=== PATIENT | female | born 1985 | race African-American/Black ===

== ENCOUNTER 2017-10-24 18:52 | Inpatient (IN) | payer OTHER ==
--- OUTSIDE RECORDS SUMMARY | ~2017-10-24 | XMS ---
Demographics + + + | Address | [address] | | | [address] | | | [place] [address] | + + + | Preferred Language | Unknown | + + + | Marital Status | Unknown | + + + | Oriental Orthodox Affiliation | Unknown | + + + | Race | Unknown | + + + | Ethnic Group | Unknown | + + + Author + + + | Author | [facility] | + + + | Organization | [facility] | + + + | Address | [address] | | | [place] [address] | + + + | Phone | | + + + Care Team Providers + + + + | Care Furniture Mover Driver Name | Role | Phone | + + + + Unavailable | Unavailable | + + + + PROBLEMS +---------+ + + +--------+ + + | Type | Condition | ICD9-CM | IRA73-CB | Onset | Condition | SNOMED | | | | Code | Code | Dates | Status | Code | +---------+ + + +--------+ + + | Problem | Encounter | Z34.90 | | | Active | [id number] | | | for | | | | | | | | supervisio | | | | | | | | n of | | | | | | | | normal | | | | | | | | | | | | | | +---------+ + + +--------+ + + | Problem | Elevated | | R03.0 | | Active | [id number] | | | blood | | | | | | | | pressure | | | | | | | | (not | | | | | | | | hypertensi | | | | | | | | on) | | | | | | +---------+ + + +--------+ + + ALLERGIES Unknown Allergies SOCIAL HISTORY No smoking Hx information available PLAN OF CARE VITAL SIGNS MEDICATIONS Unknown Medications RESULTS No Results PROCEDURES No Known procedures IMMUNIZATIONS No Known Immunizations"
--- OUTSIDE RECORDS SUMMARY | ~2017-10-24 | XMS | Clinical Summary ---
Demographics + + + | Address | [address] | | | [place] [address] | + + + | Home Phone | | + + + | Preferred Language | Unknown | + + + | Marital Status | Single | + + + | Spiritism Affiliation | NON | + + + | Race | Black or | + + + | Ethnic Group | Not or | + + + Author + + + | Organization | Unknown | + + + | Address | Unknown | + + + | Phone | Unavailable | + + + Support +------+ + + + +-------+ | Name | Relationship | Address | Phone | +------+ + + + +-------+ ECON | [address] [facility] | | [place] | [address] | +------+ + + + +-------+ Care Team Providers + +------+ + | Care Network Systems Analyst Name | Role | Phone | + +------+ + PP | Unavailable | + +------+ + Source Comments TEE is fully live on both [facility] and [facility] Allergies Not on File Current Medications Not on file Active Problems Not on file Social History + +-------+ +--------+------+ | Tobacco Use | Types | Packs/Day | Years | Date | | | | | Used | | + +-------+ +--------+------+ | Never Assessed | | | | | + +-------+ +--------+------+ + + + | Sex Assigned at | Date Recorded | | | | + + + | Not on file | | + + + Plan of Treatment + + + + + | Health Maintenance | Due Date | Last Done | Comments | + + + + + | INFLUENZA VACCINE | | | | | (FLU SHOT) | 7 | | | + + + + + Results Not on filefrom Last 3 Months"
--- OUTSIDE RECORDS SUMMARY | ~2017-10-24 | XMS ---
Demographics + + + | Address | [address] | | | [address] | | | [place] [address] | + + + | Preferred Language | Unknown | + + + | Marital Status | Unknown | + + + | Adventist Affiliation | Unknown | + + + | Race | Unknown | + + + | Ethnic Group | Unknown | + + + Author + + + | Author | [facility] | + + + | Organization | [facility] | + + + | Address | [address] | | | [place] [address] | + + + | Phone | | + + + Care Team Providers + + + + | Care Sales Expert Name | Role | Phone | + + + + Unavailable | Unavailable | + + + + PROBLEMS +---------+ + + +--------+ + + | Type | Condition | ICD9-CM | ESV17-IO | Onset | Condition | SNOMED | | | | Code | Code | Dates | Status | Code | +---------+ + + +--------+ + + | Problem | Encounter | Z34.90 | | | Active | [id number] | | | for | | | | | | | | supervisio | | | | | | | | n of | | | | | | | | normal | | | | | | | | | | | | | | +---------+ + + +--------+ + + | Problem | Elevated | | R03.0 | | Active | [id number] | | | blood | | | [...]
--- OUTSIDE RECORDS SUMMARY | ~2017-10-24 | XMS ---
Demographics + + + | Address | [address] | | | [address] | | | [place] [address] | + + + | Preferred Language | Unknown | + + + | Marital Status | Unknown | + + + | Muslim Affiliation | Unknown | + + + | Race | Unknown | + + + | Ethnic Group | Unknown | + + + Author + + + | Author | [facility] | + + + | Organization | [facility] | + + + | Address | [address] | | | [place] [address] | + + + | Phone | | + + + Care Team Providers + + + + | Care Detonator Maker Name | Role | Phone | + + + + Unavailable | Unavailable | + + + + PROBLEMS +---------+ + + +--------+ + + | Type | Condition | ICD9-CM | ZFB83-GM | Onset | Condition | SNOMED | | | | Code | Code | Dates | Status | Code | +---------+ + + +--------+ + + | Problem | Encounter | Z34.90 | | | Active | [id number] | | | for | | | | | | | | supervisio | | | | | | | | n of | | | | | | | | normal | | | | | | | | | | | | | | +---------+ + + +--------+ + + | Problem | Elevated | | R03.0 | | Active | [id number] | | | blood | | | | | | | | pressure | | | | | | | | (not | | | | | | | | hypertensi | | | | | | | | on) | | | | | | +---------+ + + +--------+ + + ALLERGIES No Information SOCIAL HISTORY Never Assessed PLAN OF CARE VITAL SIGNS MEDICATIONS Unknown Medications RESULTS No Results PROCEDURES No Known procedures IMMUNIZATIONS No Known Immunizations MEDICAL (GENERAL) HISTORY + + +------+ | Type | Description | Date | + + +------+ | Medical History | headache | | + + +------+ | Surgical History | T & A | 1995 | + + +------+ | Surgical History | sinus surgery x 6 | | + + +------+ | Surgical History | right hip replacement x 4 | | | | (age 1, 6, 11, 16) | | + + +------+"
--- OUTSIDE RECORDS SUMMARY | ~2017-10-24 | XMS ---
Demographics + + + | Address | [address] | | | [address] | | | [place] [address] | + + + | Preferred Language | Unknown | + + + | Marital Status | Unknown | + + + | Restorationism Affiliation | Unknown | + + + | Race | Unknown | + + + | Ethnic Group | Unknown | + + + Author + + + | Author | [facility] | + + + | Organization | [facility] | + + + | Address | [address] | | | [place] [address] | + + + | Phone | | + + + Care Team Providers + + + + | Care Performance Improvement Director Name | Role | Phone | + + + + Unavailable | Unavailable | + + + + PROBLEMS +---------+ + + +--------+ + + | Type | Condition | ICD9-CM | RZP17-CC | Onset | Condition | SNOMED | | | | Code | Code | Dates | Status | Code | +---------+ + + +--------+ + + | Problem | Encounter | Z34.90 | | | Active | [id number] | | | for | | | | | | | | supervisio | | | | | | | | n of | | | | | | | | normal | | | | | | | | | | | | | | +---------+ + + +--------+ + + | Problem | Elevated | | R03.0 | | Active | [id number] | | | blood | | | [...]
[2017-10-25] MEDS ORDERED: VITAFOL-OB+DHA1 EACH PO (01:18)
--- NOTE | 2017-10-25 09:59 | PR ---
[facility] [address] [facility] [place], [place] [address] Signed Progress Notes IP Datetime Report Generated by CPN: 10/25/2017 09:59 PROGRESS NOTES: [id number] Impression: Slow Progression of Labor Plan: Continue present management VITAL SIGNS: [id number] Vital Signs: Reviewed VS Notable Details: No severe range BP's EXAM: [id number] Dilatation: 1.5 Effacement: 75 Station: -3 Uterine Contractions: every 1-3 minutes MEMBRANES: [id number] Pooling: Negative Membrane Status: Intact Comments: Toleraing contracitons well, after 3rd Cytotec placed. Received 2nd Ancef dose. Continue induction. AROM with internal monitors when able. Fetus A: [id number] FHR Baseline: 130 Variability: Moderate 6-25bpm Accelerations: 15X15 Decelerations: None FHR Category: Category I Presentation: Vertex Comments on Fetus A: No evidence of metabolic acidosis Fetus B: [id number] Signing Physician: Mathew Otoole MD CC: *Electronically Signed* 10/25/17 0959 MATHEW OTOOLE MD PATIENT NAME: ANDREWFRANCESCOKirk CARNEY PROGRESS NOTE DATE OF : 81 PHYSICIAN: MATHEW OTOOLE MD RPT #: [id number] REPORT IS CONFIDENTIAL AND NOT TO BE RELEASED WITHOUT AUTHORIZATION
--- NOTE | 2017-10-25 13:31 | PR ---
[facility] [address] [facility] [place], [place] [address] Signed Progress Notes IP Datetime Report Generated by CPN: 10/25/2017 13:31 PROGRESS NOTES: [id number] Impression: Normal progression of labor Procedures: Intrauterine Pressure Catheter; Scalp Electrode Plan: Continue present management VITAL SIGNS: [id number] Vital Signs: Reviewed VS Notable Details: No severe range BP's EXAM: [id number] Dilatation: 3.5 Effacement: 80 Station: -3 Uterine Contractions: every 2-3 minutes MEMBRANES: [id number] Pooling: Negative Membrane Status: Ruptured Amniotic Fluid Color: Clear Comments: Tolerating contracitons with IV pain meds. Turned to left side, fetus tolerating labor well at this time. Fetus A: [id number] FHR Baseline: 130 Variability: Moderate 6-25bpm Accelerations: 15X15 Decelerations: None FHR Category: Category I Presentation: Vertex Comments on Fetus A: several early decels Fetus B: [id number] Signing Physician: Juan Otoole MD CC: *Electronically Signed* 10/25/17 1331 JUAN OTOOLE MD PATIENT NAME: ALINA MORALES PROGRESS NOTE DATE OF : 81 PHYSICIAN: JUAN OTOOLE MD RPT #: [id number] REPORT IS CONFIDENTIAL AND NOT TO BE RELEASED WITHOUT AUTHORIZATION
--- NOTE | 2017-10-26 12:50 | OR ---
[facility] [address] [place], [place] [address] Signed DATE OF OPERATION: 10/25/2017 SURGEON: Juan Cottrell MD PREOPERATIVE DIAGNOSES: 1. Term labor, failure to progress. 2. Non-reassuring heart rate tracing. 3. Chronic hypertension. 4. Obesity. 5. Undiagnosed possible bleeding disorder. POSTOPERATIVE DIAGNOSES: 1. Term labor, failure to progress. 2. Non-reassuring heart rate tracing. 3. Chronic hypertension. 4. Obesity. 5. Undiagnosed possible bleeding disorder. PROCEDURE PERFORMED: Primary low transverse segment section, delivery of live female . WAREHOUSE PACKAGING SUPERVISOR: Dr. Rubin. ANESTHESIA: General. ESTIMATED BLOOD LOSS: 1500 mL. COMPLICATIONS: None. DRAINS: Vera to bladder. FINDINGS: Live female , Apgars 8 and 9. Weight 8 pounds 5 ounces in ROP presentation. Normal uterus. Normal tubes and ovaries bilateral. Electronically Signed By: JUAN COTTRELL MD 10/26/17 8060 PATIENT NAME: ALINA MORALES OPERATIVE REPORT DATE OF : 81 PHYSICIAN: JUAN COTTRELL MD REPORT #: [id number] REPORT IS CONFIDENTIAL AND NOT TO BE RELEASED WITHOUT AUTHORIZATION [facility] [address] [place] [address] Signed DESCRIPTION OF PROCEDURE: The patient was brought in to the operating room, placed in supine position. She was prepped and draped in the usual sterile fashion. Vera catheter was placed in the bladder. Because of the undiagnosed possible bleeding disorder, it was decided the safest method would be under general anesthesia, so everything was prepared before starting anesthesia. The patient is obese and so sterile straps were attached to the abdomen to hold her abdomen up during the surgery. The patient received tranexamic acid approximately 10-15 minutes before incision to help with the bleeding. General anesthesia was then obtained and immediately a low-transverse skin incision was made with a scalpel. Subcutaneous tissue was dissected with a scalpel and the fascia nicked with a scalpel. The fascia was opened in transverse fashion using curved scissors. The underlying abdominal musculature was bluntly and sharply from the fascia above and below the incision. The abdominal musculature was bluntly along the midline and peritoneum opened with finger dissection. The George self-retaining retractor was inserted into the incision, lower uterine segment identified, the midline was carefully nicked with scalpel and the incision extended in transverse fashion using finger dissection. The was noted to be in the vertex ROP presentation. The infant's head was still high, not in the pelvis, so was easily delivered from the incision. The mouth and nose were suctioned with bulb syringe while the cord was doubly clamped and cut. The was passed off table in good condition to the awaiting recreation facility attendant, cord gases were obtained and the placenta removed and the uterine cavity explored with lap pad to remove any retained membrane. Angled stitch of 0 Monocryl was placed in one incision and running locking stitch of 0 Monocryl starting at the other end used to close the incision. On the left side, the incision extended down and through some of the uterine vessels which did create more bleeding, this was controlled with T clamps prior to sewing the incision close. A second running stitch of 0 Monocryl was used to imbricate the first layer. The uterine incision was examined, there was good hemostasis for some oozing in the left angle within the broad ligament, finger was placed behind the broad ligament and the uterine vessel on the left side sutured with jfbtrt-tv-[id number] stitches of 0 Monocryl. Good hemostasis was obtained. Another mfgnhd-hm-ndhha stitch of 0 Monocryl was used to bring the torn peritoneum of the broad ligament back hoe operator together. The entire pelvis was irrigated, suctioned, and examined, any bleeding spots were cauterized with the Bovie. Good hemostasis was noted at this time. Evicel was placed in the raw area of the broad ligament to further help with hemostasis and then the George retractor was removed. Sheet of ACell placed over the lower uterine segment to help with healing. The anterior wall peritoneum was closed using running stitch of 2-0 Vicryl suture. The abdominal musculature was irrigated, suctioned, and examined. Several bleeding spots from torn muscle were identified and these were closed with akitoj-qb-vjtfn stitches of 0 Vicryl suture. Superficial bleeding spots on the underside of the fascia and on the superficial Electronically Signed By: JUAN COTTRELL MD 10/26/17 7170 PATIENT NAME: ALINA MORALES OPERATIVE REPORT DATE OF : 81 PHYSICIAN: JUAN COTTRELL MD REPORT #: [id number] REPORT IS CONFIDENTIAL AND NOT TO BE RELEASED WITHOUT AUTHORIZATION [address] [address] Signed muscle were cauterized with the Bovie. Good hemostasis was obtained. The abdominal musculature was reapproximated along the midline using interrupted stitches of 0 Vicryl suture. The powdered ACell was sprinkled on the abdominal musculature after irrigating and suctioning making sure of good hemostasis. The fascia was then closed using 2 running stitches of 0 Vicryl suture meeting in the midline. Subcutaneous tissue was irrigated, suctioned, examined, any bleeding spots cauterized with the Bovie. Subcutaneous tissue was sprinkled with powdered ACell, and then closed in two layers with the first layer with interrupted 3-0 Vicryl suture and the second layer with a running stitch of 0 Vicryl suture. The skin was reapproximated using skin clips. The patient tolerated the procedure well, went to recovery room in good condition. The sponge, needle, and instrument count were correct at the end of procedure. The Vera was in place, had good clear urine. The cord gases were sent to the lab. Sponge, needle, and instrument count correct at the end of the procedure. Juan Cottrell MD MJB/MODL /[id number] Electronically Signed By: JUAN COTTRELL MD 10/26/17 1250 PATIENT NAME: ALINA MORALES OPERATIVE REPORT DATE OF : 81 PHYSICIAN: JUAN COTTRELL MD REPORT #: [id number] REPORT IS CONFIDENTIAL AND NOT TO BE RELEASED WITHOUT AUTHORIZATION
== END 2017-10-28 14:10 | disposition home or self-care (01) | DRG 765 ==
LOC: EDSTATUS 10-25 00:17 → FBC 10-25 00:19 → FBCO 10-25 18:29 → FBC 10-28 14:10
PROVIDERS: ADMIT General Practice
PROC: 10D00Z1 Extraction of Products of Conception, Low, Open Approach (ICD-10-PCS; principal; 2017-10-25 17:00)
DX: O32.4XX0 Maternal care for high head at term, not applicable or unspecified (principal); O10.92 Unspecified pre-existing hypertension complicating childbirth; Z37.0 Single live birth; O76 Abnormality in fetal heart rate and rhythm complicating labor and delivery; O99.214 Obesity complicating childbirth; Z3A.39 39 weeks gestation of pregnancy
CPT/HCPCS: 01961; 36415; 80053; 82803; 85025; 85027; 85610; 85730; 86850; 86900; 86901; 86920; C1763; J0330; J0360; J0690; J1170; J2250; J2405; J2550; J2590; J2704; J3010; J3105; J7120

== ENCOUNTER 2020-11-23 17:54 | Emergency (ER) | payer OTHER ==
[~2020-11-23] VITALS: Ht 167.6 cm; Wt 205.5 kg
[~2020-11-23 17:54] MED LIST: VITAFOL-OB+DHA1 EACH PO
[2020-11-23] MEDS ORDERED: VENTOLIN HFA18 GM INH (18:17)
== END 2020-11-23 20:50 | disposition home or self-care (01) ==
LOC: ED 17:54
DX: U07.1 COVID-19 (principal); R00.0 Tachycardia, unspecified; I10 Essential (primary) hypertension; Z88.0 Allergy status to penicillin; Z88.1 Allergy status to other antibiotic agents
CPT/HCPCS: 80053; 85025; 96374; 99284-25; C9803; J1885; J7030; U0003

== ENCOUNTER 2021-06-30 19:45 | Inpatient (IN) | payer OTHER ==
[~2021-06-30] VITALS: Ht 167.6 cm; Wt 166.1 kg
[~2021-06-30 19:45] MED LIST changes: +VENTOLIN HFA18 GM INH
--- NOTE | 2021-07-01 07:19 | OR ---
[facility] [address] [place], [place] [address] Signed DATE OF OPERATION: 07/01/2021 SURGEON: Yazan Diana MD PREOPERATIVE DIAGNOSES: 1. Diabetic ketoacidosis. 2. Sepsis. POSTOPERATIVE DIAGNOSES: 1. Diabetic ketoacidosis. 2. Sepsis. PROCEDURE: 1. Placement right femoral triple-lumen catheter. 2. Attempted placement left subclavian triple-lumen catheter. ESTIMATED BLOOD LOSS: Minimal. INDICATIONS: Nilo is a 36-year-old, obese female, who has been admitted to the ICU with diabetic ketoacidosis and sepsis. She has been undergoing hydration through peripheral IV access. She is in need of ongoing ICU care including pressor support. She also has pancreatitis. I was therefore asked to come urgently to the ICU to place a central venous catheter for this patient. She is unconscious and unable to respond. In fact, local anesthetic was then even needed. DESCRIPTION OF PROCEDURE: We initially approached Nilo's left subclavian access point. Her body mass index was quite high. She was very full in her chest and neck. We had prepped and draped the entire area sterilely and injected some local anesthetic and then passed our needle in. We barely got to her clavicle and we up the length of the needle. We tried twice to go underneath the clavicle without success. Consequently, we abandoned the subclavian approach. At that point, we did not have our ultrasound with this, and we decided we would place it in the femoral approach with the idea change out in a day or two with the help of the ultrasound if necessary. The right groin had been prepped and draped in the usual sterile fashion and again we used our bedside Doppler to find the femoral artery and vein. We marked that appropriately. We could palpate that as well. We again passed the needle almost up to the hub and we had not access her femoral vein. We had to go just a little deeper and dimple her skin and we finally accessed her Electronically Signed By: YAZAN DIANA MD 07/01/21 0719 PATIENT NAME: NILO MORALES OPERATIVE REPORT DATE OF : 81 REPORT #: [id number] PHYSICIAN: YAZAN DIANA MD PCP: NO PRIMARY CARE PHYSICIAN REPORT IS CONFIDENTIAL AND NOT TO BE RELEASED WITHOUT AUTHORIZATION [facility] [address] [place] [address] Signed femoral vein. We had return of nonpulsatile dark venous blood. The wire was able to feed without any resistance whatsoever. The was dilated without resistance and the dilator curved in the appropriate direction. The triple-lumen catheter was inserted up to the hub and all three ports were able to draw and flush quite readily. The catheter was held in place with interrupted silk sutures. Dry plastic occlusive dressing was applied per nursing staff. Nilo of course tolerated the procedure well. She is unconscious. Yazan Diana MD ALB/MODL /[id number] cc: Yazan Diana MD Copies: YAZAN DIANA MD ~ Electronically Signed By: YAZAN DIANA MD 07/01/21 0719 PATIENT NAME: NILO MORALES OPERATIVE REPORT DATE OF : 81 REPORT #: [id number] PHYSICIAN: YAZAN DIANA MD PCP: NO PRIMARY CARE PHYSICIAN REPORT IS CONFIDENTIAL AND NOT TO BE RELEASED WITHOUT AUTHORIZATION
--- NOTE | 2021-07-01 14:34 | EKG ---
[facility] [address] [facility] [place], [place] [address] Signed Normal sinus rhythm Right atrial enlargement ST \T\ T wave abnormality, consider lateral ischemia Prolonged QT Abnormal ECG No previous ECGs available Confirmed by KATHI IBRAHIM MD ([id number]) on 07/01/2021 2:34:30 PM Electronically Signed By: KATHI IBRAHIM MD 07/01/21 1434 PATIENT NAME: ALINA MORALES ROMMEL Electrocardiogram DATE OF : 81 PHYSICIAN: KATHI IBRAHIM MD REPORT #: [id number] REPORT IS CONFIDENTIAL AND NOT TO BE RELEASED WITHOUT AUTHORIZATION
[2021-07-07] MEDS ORDERED: PANTOPRAZOLE SO40 MG PO (12:39)
[2021-07-07] MEDS ORDERED: FREESTYLE LITE1 EAC1 TD (12:40)
[2021-07-07] MEDS ORDERED: SEMGLEE100 UNIT/1 SUB-Q (12:40)
[2021-07-07] MEDS ORDERED: FREESTYLE FREE1 EAC1 MISC (12:41)
[2021-07-07] MEDS ORDERED: INSULIN SYRING1 EA47 MISC (12:41)
[2021-07-07] MEDS ORDERED: METFORMIN HCL500 MG PO (12:43)
[2021-07-07] MEDS ORDERED: AMLODIPINE BESYL5 MG PO (12:48)
[2021-07-07] MEDS ORDERED: ONDANSETRON ODT4 MG SL (12:50)
== END 2021-07-07 15:20 | disposition home or self-care (01) | DRG 637 ==
LOC: ED 19:45 → CCU 22:51 → MS 22:51 → CCU 07-03 23:00 → MS 07-05 12:10
PROVIDERS: ADMIT Internal Medicine; ATTEND Internal Medicine
PROC: 05HY33Z Insertion of Infusion Device into Upper Vein, Percutaneous Approach (ICD-10-PCS; principal; 2021-07-02 13:45)
DX: E11.10 Type 2 diabetes mellitus with ketoacidosis without coma (principal); G93.41 Metabolic encephalopathy; K85.00 Idiopathic acute pancreatitis without necrosis or infection; N17.9 Acute kidney failure, unspecified; E87.1 Hypo-osmolality and hyponatremia; R65.10 Systemic inflammatory response syndrome (SIRS) of non-infectious origin without acute organ dysfunction; Z20.822 Contact with and (suspected) exposure to COVID-19; E86.1 Hypovolemia; E83.39 Other disorders of phosphorus metabolism; I10 Essential (primary) hypertension; F17.210 Nicotine dependence, cigarettes, uncomplicated; Z98.890 Other specified postprocedural states; Z96.641 Presence of right artificial hip joint; Z88.0 Allergy status to penicillin; Z88.1 Allergy status to other antibiotic agents; Z79.899 Other long term (current) drug therapy
CPT/HCPCS: 36569; 70450; 71045; 74176; 80048; 80053; 80061; 80069; 80500; 81001; 82010; 82553; 82565; 82800; 82803; 83605; 83690; 83735; 84100; 84132; 84484; 84520; 84703; 85007; 85025; 87040; 93005; 93010; 97110; 97116; 97161; 97165; 97535; A9270; C1751; C9113; C9803; G0480; J1650; J1815; J2060; J2270; J2405; J3370; J3475; J3480; J3490; J7030; J7042; J7060; J7121; U0003

== ENCOUNTER 2021-07-10 12:01 | Emergency (ER) | payer OTHER ==
[~2021-07-10] VITALS: Ht 167.6 cm; Wt 166.0 kg
[~2021-07-10 12:01] MED LIST changes: +AMLODIPINE BESYL5 MG PO; +FREESTYLE FREE1 EAC1 MISC; +FREESTYLE LITE1 EAC1 TD; +INSULIN SYRING1 EA47 MISC; +METFORMIN HCL500 MG PO; +ONDANSETRON ODT4 MG SL; +PANTOPRAZOLE SO40 MG PO; +SEMGLEE100 UNIT/1 SUB-Q
--- OUTSIDE RECORDS SUMMARY | 2021-07-10 12:08 | XMS ---
PreManage Notification: ALINA MORALES Security Director Of Program Management Events No recent Security Events currently on file CRITERIA MET - [facility] - 2 Visits in 30 Days CARE PROVIDERS SHALONDA JONES Nurse Practitioner: Family Current PHONE: [phone] Naheed has no Care Guidelines for this patient. Barbra VISIT COUNT (12 MO.) 3 [facility] TOTAL 3 NOTE: Visits indicate total known visits. ED/UCC VISIT TRACKING (12 MO.) 07/10/2021 12:02 [facility] [place] TYPE: Emergency COMPLAINT: - ABD PAIN 06/30/2021 19:47 [facility] TYPE: Emergency COMPLAINT: - WEAKNESS 11/23/2020 17:55 [facility] TYPE: Emergency COMPLAINT: - SOB DIAGNOSES: - COVID-19 - Shortness of breath - Allergy status to penicillin - Allergy status to other antibiotic agents - Tachycardia, unspecified - Essential (primary) hypertension INPATIENT VISIT TRACKING (12 MO.) 06/30/2021 22:[address] [facility] [place] [place] TYPE: Medical Surgical COMPLAINT: - DKA DIAGNOSES: - Systemic inflammatory response syndrome (SIRS) of non-infectious origin without acute organ dysfunction - Type 2 diabetes mellitus with ketoacidosis without coma - Allergy status to other antibiotic agents - Hypo-osmolality and hyponatremia - Other alf (current) drug therapy - Hypo-osmolality and hyponatremia - Metabolic encephalopathy - Idiopathic acute pancreatitis without necrosis or infection - Metabolic encephalopathy - Nicotine dependence, cigarettes, uncomplicated - Other disorders of phosphorus metabolism - Allergy status to other antibiotic agents - Systemic inflammatory response syndrome (SIRS) of non-infectious origin without acute organ dysfunction - Other rodent exterminator (current) drug therapy - Other specified postprocedural states - Essential (primary) hypertension - Hypovolemia - Allergy status to penicillin - Presence of right artificial hip joint - Other specified postprocedural states - Acute kidney failure, unspecified - Other disorders of phosphorus metabolism - Presence of right artificial hip joint - Idiopathic acute pancreatitis without necrosis or infection - Nicotine dependence, cigarettes, uncomplicated - Essential (primary) hypertension - Allergy status to penicillin - Acute kidney failure, unspecified - Hypovolemia [email or web address]
== END 2021-07-10 18:30 | disposition home or self-care (01) ==
LOC: ED 12:01
DX: R30.0 Dysuria (principal); R10.9 Unspecified abdominal pain; F17.200 Nicotine dependence, unspecified, uncomplicated; E11.9 Type 2 diabetes mellitus without complications; Z88.0 Allergy status to penicillin; Z88.1 Allergy status to other antibiotic agents; Z79.84 Long term (current) use of oral hypoglycemic drugs; Z79.899 Other long term (current) drug therapy
CPT/HCPCS: 51798; 80053; 81001; 83690; 85025; 99284-25

== ENCOUNTER 2022-10-05 14:47 | Emergency (ER) | payer OTHER ==
[~2022-10-05] VITALS: Ht 167.6 cm; Wt 166.0 kg
[2022-10-05] MEDS ORDERED: INSULIN GL100 UNIT/2 SQ (16:06)
[2022-10-05] MEDS ORDERED: PEN NEEDLE1 EAC5 MISC (16:06)
[2022-10-05] MEDS ORDERED: BUPROPION XL300 MG PO (16:07)
[2022-10-05] MEDS ORDERED: METFORMIN HCL1000 MG PO (16:07)
[2022-10-05] MEDS ORDERED: VICTOZA 3-0.6 MG/0.1 SUB-Q (16:09)
[2022-10-05] MEDS ORDERED: NAPROSYN500 MG PO (16:21)
== END 2022-10-05 16:34 | disposition home or self-care (01) ==
LOC: ED 14:47
DX: M67.472 Ganglion, left ankle and foot (principal); F17.200 Nicotine dependence, unspecified, uncomplicated; Z88.0 Allergy status to penicillin; Z88.1 Allergy status to other antibiotic agents; Z79.899 Other long term (current) drug therapy; Z79.4 Long term (current) use of insulin; Z79.84 Long term (current) use of oral hypoglycemic drugs
CPT/HCPCS: 73630; 99283-25

== ENCOUNTER 2022-12-06 20:28 | Inpatient (IN) | payer OTHER ==
[~2022-12-06] VITALS: Ht 167.6 cm; Wt 127.7 kg
[~2022-12-06 20:28] MED LIST changes: +BUPROPION XL300 MG PO; +INSULIN GL100 UNIT/2 SUB-Q; +METFORMIN HCL1000 MG PO; +NAPROSYN500 MG PO; +PEN NEEDLE1 EAC5 MISC; +VICTOZA 3-0.6 MG/0.1 SUB-Q
--- NOTE | 2022-12-06 22:11 | EKG ---
[facility] [address] [place] [place] [address] Signed Normal sinus rhythm Prolonged QT Abnormal ECG When compared with ECG of 30-JUN-2021 19:54, No significant change was found Confirmed by KATHI IBRAHIM MD ([id number]) on 12/06/2022 10:11:27 PM Electronically Signed By: KATHI IBRAHIM MD 12/06/222210 PATIENT NAME: ANDREWALINA JEAN Electrocardiogram DATE OF : 81 PHYSICIAN: KATHI IBRAHIM MD REPORT #: [id number] REPORT IS CONFIDENTIAL AND NOT TO BE RELEASED WITHOUT AUTHORIZATION
--- NOTE | 2022-12-07 01:00 | NUR ---
Patient received from ED nurse, LUIS ALBERTO Ann accompanied by RT. Initial assessment performed with patient on ventilator as well as insulin drip, sedation drip and NS bolus infusing via right IJ central line. Heart rate and BP vital signs stable with no indications of pain. Patient's temp is 94.1 upon arrival and heating blanket immediately applied. FiO2 was also increased to 80% due to O2 saturation in mid 80s. Patient was not responsive to pain, nor did she have a gag reflex, cough or corneal response. Patient's upper lung bases sounded clear with lower bases diminished. Upon bathing, multiple tattoos dioscovered over entire body and excoriation was found in the groin area and under the belly. Blood glucose level was not able to be determined due to the value being too high for the glucometer. was found in the
--- NOTE | 2022-12-07 02:00 | NUR ---
Blood glucose still too high to be assessed by glucometer. Will send sample to lab.
--- NOTE | 2022-12-07 04:00 | NUR ---
Repeat assessment performed with patient noted to be breathing over the vent. Heart rate is now tachycardic and core temp is normal. Patient still not responding to pain nor does she have a gag reflex or corneal response. Urine output remains minimal.
--- NOTE | 2022-12-07 06:00 | NUR ---
Contacted Dr. Randolph concerning low BP and patient 's continued work of breathing. Orders received for Levophed infusion along with fentanyl IVP. Patient's temp is now elevated and heart rate is in low 120s. Blood glucose is able to be measured with glucometer with insulin infusion still running.
--- NOTE | 2022-12-07 07:20 | NUR ---
report received from maintenance mechanic 2nd shift laurent kraus, care of pt assumed at this time. pt resting bed. levophed infusing at 8 mcg/min. versed infusing at 5 mcg/hr, and insulin 35.2 units/hr. pt over breathing the vent with a respiratory rate in the 30s. heart rate 120s. end tital co2 greater than 60. this rn and laurent bright at bedside.
--- NOTE | 2022-12-07 09:13 | NUR ---
DISCUSSED PT NEURO STATUS, BLOOD PRESSURES, URINE OUTPUT, BLOOD SUGARS, LAB VALUES, AND OTHER ASSESSMENT FINDINGS WITH DR IBRAHIM AT THIS TIME. NO NEW ORDERS. SEE FLOWSHEET FOR TITRATIONS.
--- NOTE | 2022-12-07 10:06 | NUR ---
PT BP 102/55 (70), HR 120S, RR37, O2 100% WITH VENTILATOR SETTINGS 80%FIO2, VT 430 ON ASSISTIVE MODE WITH PT BREATHING OVER VENT. PT INSULIN TITRATED TO 20MCG BS 297. HOURLY URINE OUTPUT 2ML. FLUID BOLUS INFUSING. PT HAS NS @ 150, LEVOPHED @ 12MCG, AND VERSED @ 5MCG/HR. PT DIAPHORTIC AND CLAMMY WITH BEST TEMP SHOWING 101.2. SCD IN PLACE, ALL BLANKETS/SHEETS REMOVED. PERIPHERAL IV OBTAINED BY JABARI SAHU. RASS SCORE OF -5. PUPILS RESPONSIVE BUT SLUGGISH.
--- NOTE | 2022-12-07 10:17 | NUR ---
LEVOPHED INFUSION TITRATED DOWN TO 10 PT HR 128, BP 113/64 (74).
--- NOTE | 2022-12-07 11:05 | NUR ---
PT DIAPHORTIC, HR 120S, RR33, BP 108/62 (72), TEMP 101.1, ETCO2 48. PT ON VENTILATOR AT 80%F102, VT 430 ASSISTIVE WITH PATIENT OVERBREATHING VENT. PT HAS LEVOPHED AT 8MCH, INSULIN @13.6 PER TITRATION PROTOCOL, VERSED @5MG/HR, AND NS @ 150ML/HR. PT RECEIVED ONE LITER BOLUS. PT STARTED ON MORPHINE CONTINUOUS INFUSION STARTED AT 2MG/HR CPOT IS 2, PT HR IN THE 130S AND RR 30S WITH PT OVERBREATHING VENTILATOR. PT SISTER AT BEDSIDE. URINE OUTPUT FOR THIS HOUR IS 2ML. PT HAS SCD IN PLACE.
--- NOTE | 2022-12-07 11:49 | NUR ---
PATIENT IS CURRENTLY SEDATED AND ON A VENT. PATIENT'S MOTHER AND SISTER ARE HAVE BEEN VISITING AND SEEM SUPORTIVE. PATIENT HAS 3 CHILDREN AT HOME.THE DISCHARGE PLAN WILL CONTINUE TO BE MONITORED ON AN ONGOING BASIS.
--- NOTE | 2022-12-07 12:00 | NUR ---
AFTERNOON ASSESSMENT COMPLETED. PT HAS ELEVATED TEMPERATURE, HR 130S, RR30S. ORAL SUCTIONING COMPLETED, OG IRRIGATED. PT HAD BEDBATH COMPLETED. VENT SETTINGS ASSISTIVE WITH TV 430, FIO2 80%. LEVOPHED @10, INSULIN @ 11.2, NS @ 150ML/HR, VERSED @ 5MG/HR, AND MORHPHINE 2MG/HR. PT CPOT 0, PT RESPIRATIONS DECREASED TO 20S WITH PT NOT BREATHING OVER VENT OFTEN. PT PLACED ON RIGHT SIDE WITH PILLOW BEHIND BACK FOR POSITIONING. NEW GOWN PLACED ON PT.
--- NOTE | 2022-12-07 12:15 | NUR ---
BLOOD DRAWN FOR PT'S CENTRAL LINE AND SENT TO LAB. 1O MLS OF WASTE.
--- NOTE | 2022-12-07 12:30 | NUR ---
BEDBATH GIVEN. BEST CARE PROVIDED, SOAP AND WATER/CHG WIPES USED. PILLOW CASES PLACED UNDER PANNUS AND IN GROIN AREA. 3PA TO SAFELY TURNAND REPOSITION PATIENT, TUBE PROTECTED DURING ACTIVITY. BEST CARE PROVIDED, SDS AND HEEL PROTECTORS IN PLACE. ORAL CARE PROVIDED. SISTER IN ROOM. STAFF CLOSELY MONITORING
--- NOTE | 2022-12-07 12:56 | NUR ---
ASSESSMENT COMPLETED. NEURO STATUS UNCHANGED, PT REMAINS AT A -5 RASS SCORE. LUNGS SOUND DIMINISHED IN BILATERAL BASES. PTS BREATHING LESS LABORED RR=28. MORPHINE CONTINUES TO INFUSE AT 2 MG/HR. LEVOPHED INFUSING AT 10 MCG/MIN. INSULIN DRIP TITRATED PER PROTOCOL. URINE OUTPUT REMAINS SCANT. TEMPERATURE ELEVATED (SEE VS). HR RATE REMAINS IN THE 430=[address] IBRAHIM UPDATED ON ASSESSMENT FINDINGS AND BMP RESULTS. VERBAL ORDER FOR TYLENOL SUPPOSITORY. NO OTHER ORDERS AT THIS TIME.
--- NOTE | 2022-12-07 13:00 | NUR ---
PT MOTHER AT BEDSIDE WELL SISTER. PT HAS LEVOPHED AT 10, VERSED @ 5MG/HR, INSULIN @ 9.6, MORPHINE @ 2MG/HR, AND STARTED ON D5 1/2NS @ 125. PT TEMPERATURE 101.4 WITH BEST TEMP PROBE. RECTAL SUPPOSITORY ORDERED. PT BREATH SOUNDS CLEAR IN UPPER QUADRANTS AND DIMINISHED IN LOWER. ABSENT BOWEL TONES, AND HEARTSOUNDS STRONG. PEDAL PULSES FAINT, RADIAL STRONG. EDEMA NOTED 1+ IN LOWER AND UPPER EXTREMITIES. URINE OUTPUT FOR THIS HOUR 8ML.
--- NOTE | 2022-12-07 13:30 | NUR ---
TYLENOL RECTAL SUPPOSITIORY GIVEN TO PT BEST TEMPERATURE IS 101.4.
--- NOTE | 2022-12-07 13:40 | NUR ---
I AM FAMILIAR WITH THIS PT AND HER SISTER MIKEL. PT ON VENT, CONNECTED WITH MIKEL. SHE IS VERY CONCERN FOR HER SISTER. THEIR MOTHER IS ON WAY BACK FROM THE [facility]. SHOULD BE HER LATER TODAY MIKEL ASKED ABOUT IV IN NECK-RN CYTNHIA WILL TOUCH BASES WITH HER REGARDING IT. HAD PRAYER, WILL FOLLOW
--- NOTE | 2022-12-07 14:21 | NUR ---
PTS' MOTHER BRANDT HAS ARRIVED FROM THE [facility]. HAD GOOD VISIT, SHE SHARED WITH ME HER ANXIETY AND FEAR FOR HER DAUGHTER. BRANDT RECEIVED CALL, WILL FOLLOW
--- NOTE | 2022-12-07 14:37 | NUR ---
DR IBRAHIM UPDATED AGAIN ON PT'S SCNART URINE OUTPUT AND POTASSIUM OF 3.0 NO NEW ORDERS AT THIS TIME. WILL CONTINUE TO CLOSELY MONITOR.
--- NOTE | 2022-12-07 15:00 | NUR ---
PT SKIN CLAMMY, HR 123, BP 88/53 (63), RASS -5, 02 100% ON VENTILATOR ON ASSISTIVE SETTING WITH FIO2 70%, ETCO2 66, TEMP 101.4. PT HAD 2ML URINE OUTPUT IN LAST HOUR. D5LR @125ML/HR, INSULIN @ 15.3, VERSED @ 5MCG, LEVOPHED @ 12, AND MORPHINE CONTINUOUS INFUSION @ 2MG/HR. WHILE COMPLETING ORAL SUCTIONING, PT BRIEFLY OPENED AND CLOSED EYES WELL HAD SLIGHT COUGH. PT PILLOW REMOVED FROM RIGHT SIDE, PT LAYING SUPINE WITH HOB ELEVATED.
--- NOTE | 2022-12-07 16:00 | NUR ---
PT REPOSITIONED ON TO LEFT SIDE WITH PILLOW BEHIND BACK/BUTTOX. ORAL CARE AND SUCTIONING PERFORMED, DURING DEEP SUCTIONING PT GRIMANCED AND OPENED EYES BRIEFLY. PT FACED CLEANED WITH WASHCLOTH. EVENING ASSESSMENT COMPLETED WELL BUNDLE CARE. PT RASS SCORE *5, HR 124, BP 101/58 (73), RR28, O2 99% ON VENTILATOR ASSISTIVE SETTING WITH TITAL VOLUME 430, RR 28, AND FI02 70%. PT BREATHING MORE EVENLY WITH VENT SINCE MORPHINE STARTED. PT TEMPERATURE CONTINUES TO INCREASE AT 101.7, ONE HOUR POST TYLENOL SUPPOSITORY. PT HAS HAS D51/2NS @ 150ML/HR, LEVOPHED @ 12, VERSED @ 5MG/HR, INSULIN DRIP @ 12.6 UNITS PER HOUR PER SLIDING SCALE, AND MORPHINE 2MG/HR. PT FAMILY AT BEDSIDE. PT BOWEL TONES ABSENT, LUNG SOUNDS DIMISHED, 1+ EDEMA NOTED IN UPPER AND LOWER EXTREMITIES, AND CLAMMY SKIN.
--- NOTE | 2022-12-07 17:09 | NUR ---
PT MOTHER LEFT TO GO HOME FOR THE EVENING, SISTER STILL IN ROOM. PT OUTPUT FOR THE HOUR IS 2ML, INSULIN TITRATED TO 10.6 PER SLIDING SCALE. PT HAS D51/2 NS @ 150ML/HR, VERSED @ 5MG/HR, MORPHINE @ 2MG/HR, LEVOPHED @ 12MCG, AND INSULIN. PT TEMPERATURE IS ELEVATED TO 101.8, HR 123, RR28, BP 99/58 (71). PT VENT SETTING IS RR 28, FIO2 70% AND VT 430. PT TOLERATING VENT WELL.
--- NOTE | 2022-12-07 17:21 | NUR ---
DR IBRAHIM UPDATED ON PT OUTPUT OF 27ML SINCE 0900 AND INTAKE OF APPROXIMATELY 3500ML WELL INCREASED CREATININE OF 4.22. ONE LITER OF NS ORDERED.
--- NOTE | 2022-12-07 17:35 | NUR ---
MD MADE AWARE OF ELEVATED TEMPERATURE OF 101.9 WITH BEST TEMP PRODE AND 101.6 AXILLARY. NO NEW ORDERS AT THIS TIME.
--- NOTE | 2022-12-07 18:15 | NUR ---
PT BUNDLE CARE PREFORMED. ORAL CARE AND SUCTIONING DONE WITH PT GRIMANCING WHEN SUCTIONING COMPLETED. PT PUPILS ARE SLUGGISH IN RESPONSE. PT HAS SCD IN PLACE, ARMS AND LEGS ELEVATED ON PILLOWS, AND REPOSITIONED TO SUPINE POSITION. FACE WASHED DUE TO DIAPHORESIS. PT URINE OUTPUT FOR THE HOUR WAS 1ML. BP 105/56 (71), HR 120, RR 28, AND TEMP 101.7. PT APPEARS TO HAVE INCREASED SWELLING IN LOWER LEGS AND FEET. PT RECEIVING ONE LITER BOLUS OF NS, D5 1/2NS @ 125, VERSED @ 5MG/HR, LEVOPHED @ 12MCG PER HOUR, MORPHINE @ 2MG/HR, AND INSULIN @ 10.8 UNITS/HR.
--- NOTE | 2022-12-07 19:40 | NUR ---
MD NOTIFIED THAT ANION GAP 17.2 WITH LAST BG 196. ORDERS PLACED BY MD TO DC INSULIN DRIP. BG CHECKS CHANGED TO Q6. SLIDING SCALE AND LONG ACTING ORDERED WELL.
--- NOTE | 2022-12-07 20:33 | NUR ---
PT MEDICATION AND ASSESSMENT COMPLETED. PT TURNED, ORAL CARE COMPLETED. PT APPEARS TO BE COMFORTABLEY WITH VERSED AND MORPHINE DRIP RUNNING.
--- NOTE | 2022-12-07 23:13 | NUR ---
NOTIFIED OF RISING PT TEMP OF 102.3. PT HAS ICE PACKS IN PLACE AND FAN ON. NO NEW ORDERS ATT.
--- NOTE | 2022-12-08 00:30 | NUR ---
PT ASSESSMENT COMPLETED. CHG WIPE DOWN COMPLETED, PT TURNED.
--- NOTE | 2022-12-08 01:30 | NUR ---
PT CONTINUES ON VENT, RT HAS INCREASED PEEP FROM 5-10. NOREPINEPHRINE, MORPHINE AND VERSED DRIPS RUNNING. COOLING BLANKET IN PLACE. CONTINUES WITH NO URINE OUTPUT.
--- NOTE | 2022-12-08 02:00 | NUR ---
PT MEDICATION ADMINISTRATION COMPLETED. PT REPOSITIONED IN BED.
--- NOTE | 2022-12-08 03:15 | NUR ---
MD CONTACTED FOR PT ELEVATED BG. VO GIVEN FOR AN ADDITIONAL 8UNITS OF REGULAR INSULIN.
--- NOTE | 2022-12-08 03:37 | NUR ---
PT MAP 81 NOREPINEPHRINE TITRATED DOWN TO 10MCG/HR. PT VENTILATOR SETTINGS REMAIN THE SAME.
--- NOTE | 2022-12-08 04:15 | NUR ---
PT ASSESSMENT COMPLETED. PT LEVOPHED DRIP AT 10MCG/HR, VERSED 5MG/HR. PT VENTILATOR SETTING REMAIN THE SAME. PT READJUSTED IN BED.
--- NOTE | 2022-12-08 06:05 | NUR ---
NOTIFIED OF PT CRITICAL LAB VALUE BG 588 AND CO2 11. NEW ORDERS TO RESTART INSULIN DRIP AND ABG DRAW.
--- NOTE | 2022-12-08 07:30 | NUR ---
ASSUMING CARE OF PT. RECEIVED REPORT FROM DONAVON SAHU. PT ON VENT SETTINGS @ FI02 40%, PEEP 10, RR28. LEVOPHED @4, INSULIN 8.8, VERSED @ 5, AND MORPHINE 2MG/HR. PT VS WITHIN NORMAL LIMITS WITH TEMP 97.6, HR 105, RR 28, AND BP 136/79 (97). PT BREATHING MECHANICAL, NON LABORED. SKIN IS DRY/WARM.
--- NOTE | 2022-12-08 08:10 | NUR ---
PT CCU BUNDLE COMPLETED WITH ORAL CARE AND SUCTIONING COMPLETED WELL VENTILATOR SUCTIONING. PT GRIMANCED DURING DEEP SUCTIONING BUT NO EYE MOVEMENT OR GAG REFLEX NOTED. PT BP 137/55 (71), HR 106, O2 99%, PIP 36, TEMP 97.6. OUTPUT FOR THE LAST HOUR WAS 65ML. PUMP FLUID VOLUME CLEARED. PT VENT SETTINGS FI02 40%, PEEP 10, RR 28, PIP 33. PT HAS D5 1/2 NS @ 125ML/HR, VERSED @ 5MG/HR, MORPHINE @ 2MG/HR, INSULIN @ 8.8UNITS PER HOUR. PT NEURO EXAM: PT RASS SCORE OF -5 AND PUPILS 2 AND SLUGGISH TO LIGHT. PT LUNG SOUNDS COURSE, DIMISHED, BOWEL TONES ABSENT, HEART SOUNDS STRONG. PT HAS EDEMA NOTED IN UPPER AND LOWER EXTREMITIES 1+ AND GENERALIZED IN FACE.
--- NOTE | 2022-12-08 08:46 | NUR ---
PER DR IBRAHIM, PT CONTINUOUS MORPHINE INFUSION TITRATED DOWN TO 1.5MG/HR.
--- NOTE | 2022-12-08 09:13 | NUR ---
PT MOTHER AND FATHER AT BEDSIDE. PT SUPINE IN BED, BP 137/55 (77), HR 105, RR 28, TEMP 97.6. HAS RESTRAINTS IN PLACE, SCD GOING. SODIUM BICARB INFUSING @ 125ML/HR, INSULIN @ 7.2UNITS/HR, VERSED @ 5MG/HR, MORPHINE @ 1.5MG/HR, AND CLINDAMYCIN INFUSING FOR THIRTY MINUTES. PT SKIN WARM AND DRY. BEST IN PLACE WITH OUTPUT FOR THE LAST HOUR 75ML. VENT SETTING: FI02 40%, PEEP 10, VT 430, RR 28.
--- NOTE | 2022-12-08 09:31 | NUR ---
PT VENTILATOR SLARM READING HIGH PIP OF 36. PT SUCTIONED WITH VENTILATOR AND ORAL SUCTION. PIP @ 32-36 AFTER INTERVENTIONS. RT CALLED TO COME ASSESS PT.
--- NOTE | 2022-12-08 09:44 | NUR ---
PER AM MEETING PATIENT REMAINS ON VENT, BUT IS IMPROVED.
--- NOTE | 2022-12-08 09:45 | NUR ---
ASHLEY RT IN ROOM. PT VENTILATOR SETTINGS ADJUSTED TO PEEP OF 5, FI02 @ 45 AND RR 22. PT O2 SATURATION 98%.
--- NOTE | 2022-12-08 10:05 | NUR ---
DURING NERUO CHECK, PT PUPILS SLUGGISH IN RESPONSE TO LIGHT, BUT COUGHING AT TIMES ON VENT. DURING DEEP SUCTIONING PT GRIMANCING AND DURING VENT SUCTIONING PT GAGGING.
--- NOTE | 2022-12-08 10:15 | NUR ---
PT REPOSITIONED ON TO LEFT SIDE WITH PILLOWS BEHIND BACK. PT RESTRAINTS REMOVED AND RANGE OF MOTION EXERCISES COMPLETED ON BOTH ARMS. RESTRAINTS REPLACED ONCE DONE. PT SUCTIONED WITH VENTILATOR ONCE MOVED.
--- NOTE | 2022-12-08 11:00 | NUR ---
PT MOTHER AND FATHER IN ROOM WITH PT SPEAKING WITH PASTOR ALEMAN. PT OUTPUT FOR THE HOUR 185ML. HR 106, BP 142/79 (97), O2 99%, PIP 27, TEMP 97.8, RR 29. RASS SCORE -5. PT INSULIN TITRATED PER SLIDING SCALE PERAMETERS.
--- NOTE | 2022-12-08 12:15 | NUR ---
AFTERNOON ASSESSMENT COMPLETED WELL PT CARE BUNDLE. PT PLACED ON RIGHT SIDE AND ROM PERFORMED WITH BOTH EXTREMITIES WITH REMOVAL OF RESTRAINTS. RESTRAINTS REPLACED ONCE FINISHED. ORAL SUCTION AND SUCTIONING PREFORMED. PT SKIN WARM AND DRY WITH EXCORIATION AND REDNESS NOTED IN AREA AREA AND UNDER PANNUS WHICH WAS CLEANED WITH CLEAN PILLOWCASE PLACED TO ASSIST WITH DRYING AREA. PT PUPILS 2 WITH SLUGGISH RESPONSE AND NO CHANGES WITH VERBAL OR PHYSICAL STIMULI ASIDE FROM DEEP SUCTIONING. PT LUNG SOUNDS CLEAR IN UPPER QUADRANTS AND COURSE/DIMISHED IN LOWER. PT HEART SOUNDS STRONG, TACHY, AND BOWEL TONES ABSENT. PT VENT SETTINGS AT FI02 @ 30%, PEEP 5, RR 28, AND VT 430. PT BP 151/82 (103), HR 114, O2 97, RR 28, AND TEMP 98.7. PT HAS INSULIN @ 10.8 UNITS/HR, VERSED @ 5MG/HR, MORPHINE @ 1MG/HR, AND SODIUM BICARD IN D5 @ 125.
--- NOTE | 2022-12-08 13:04 | NUR ---
PT ACCUCHECK OBTAINED AND NO TITRATION NEEDED AT THIS TIME. URINE OUTPUT FOR THE HOUR IS 265ML. PT VENT SETTINGS FI02 30%, PEP 5, PIP 24, VT 430. PT OF 96%, HR 115, RR 28, TEMP 98.8, AND BP 139/65 (84). PT HAS VERSED @ 5MG/HR, MORPHINE @ 1MG/HR, INSULIN @ 10.8UNITS PER HOUR, AND BICARD D5 INFUSING @ 125ML/HR. PT SKIN DRY AND WARM. PT MOTHER AND FATHER AT BEDSIDE.
--- NOTE | 2022-12-08 14:28 | NUR ---
LUIS ALBERTO BARBOZA INFORMED ME THAT PT IS SHOWING SOME SIGNS OF IMPROVEMENT. PT STILL ON VENT. CONNECTED WITH PTS' MOTHER BRANDT AND STEP DAD AYANNA. SHE IS FEELING A LITTLE BETTER, ENCOURAGED HER TO CELEBRATE ANY LITTLE WIN, SHE ACKNOWLEDGED SHARED HOW MUCH THEY APPRECIATE THE APPLE SORTER AND MARIE CAMPOS FOR THEIR HELP COMPASSION AND PROFESSIONALISM. HAD PRAYER AND WILL FOLLOW
--- NOTE | 2022-12-08 15:30 | NUR ---
PT TEMPERATURE 100.5 WITH IT INCREASING OVER THE LAST FEW HOURS, HR IN THE 120S, RR 28, O2 97. DR IBRAHIM INFORMED OF CHANGED IN TEMPERATURE AND HEART RATE CHANGES. NO NEW ORDERS AT THIS TIME.
--- NOTE | 2022-12-08 15:50 | NUR ---
CMP COLLECTED THROUGH PT CENTRAL LINE HUB. 10ML WASTE BEFORE SAMPLE COLLECTED. SAMPLE SENT TO LAB. LINE FLUSHED AND FLUIDS RESTARTED.
--- NOTE | 2022-12-08 16:00 | NUR ---
PT SISTER AT BEDSIDE. RASS SCORE OF -5, BP 117/69 (84), HR 122, RR 28, 02 @ 98% ON VENTILATOR ASSISTIVE MODE, PIP 25, ETCO2 57, TEMP 100.6. INTAKE FOR THE HOUR WAS 100ML. INSULIN TITRATED UP BASED ON SCALING SCALE PARAMETERS. PT OG IRRIGATED, ORAL CARE AND SUCTIONING COMPLETED. CPOT SCORE 2. PT GIVEN BEDBATH WITH CHLOREXEDINE WIPES. NEW LINENS PLACED ON BED AND CLEAN GOWN PLACED ON PT. PT PANNUS AND ÁLVARO AREA CLEANED, BARRIER CREAM PLACED, AND PILLOWCASE PLACED IN BETWEEN BARRIER. PT TURNED ON TO RIGHT SIDE WITH PILLOW AND BOOSTER UP IN BED WITH HOB @ 30 DEGREES. DUE TO PT TEMP, SYLVIE TURNED ON TO LOWER TEMPERATURE.
--- NOTE | 2022-12-08 17:00 | NUR ---
PT HR 115, TEMP 100.6, RR 28, O2 100%, BP 95/59 (69). PT HAS INSULIN @ 10 UNITS/HR, SODIUM BICARB @ 125, VERSED @ 5MG/HR, MORPHINE @ 1MG/HR. OUTPUT FOR THE LAST HOUR WAS 230ML. PT SKIN IS CLAMMY. PUPIL RESPONSE SLUGGISH, LUNG SOUNDS COURSE/DIMINISHED. SISTER AT BEDSIDE. LAB RESULTS OBTAINED. INFORMED OF LOW POTASSIUM. POTASSIUM ORDERED.
--- NOTE | 2022-12-08 18:31 | NUR ---
PT CARE BUNDLE COMPLETED. PT TURNED ON TO LEFT SIDE WITH PILLOW BEHIND HER, UNDER BOTH LEGS AND LEFT ARM. PT HAS HEEL PROTECTORS IN PLACE AND SCD GOING. PT IS ON STYKER MAT WITH COOLING MEASURES IN PLACE TEMPERATURE IS 100.6. ORAL CARE AND SUCTIONING COMPLETED WELL OG TUBE IRRIGATED. PT GRIMANCING DURING SUCTIONING AND WHEN CLEANING PANNUS. PT HR 120S, O2 99%, RR 28, BP 118/70 (85). PT SKIN WARM TO TOUCH AND DRY AT THIS TIME. URINE OUTPUT FOR THIS HOUR IS 110ML. PT HAS D5 1/2 NS @ 125, VERSED @ 5MG/HR, INSULIN @ 10 UNITS/HR, MORPHINE @ 1MG/HR, AND POTASSIUM PIGGYBACK WITH D5 1/2 NS. PT PUPILS 2 AND SLUGGISHLY REACTIVE, HEART SOUNDS STRONG/REGULAR, LUNG SOUNDS CLEAR IN UPPER, DIMINISHED/ COURSE IN LOWER, BOWEL TONES ABSENT. RASS SCORE -5.
--- NOTE | 2022-12-08 20:39 | NUR ---
PT ASSESSMENT AND MEDICATION ADMINISTRATION COMPLETED. ORAL CARE COMPLETED. PT GRIMACES WITH ORAL CARE AND SUCTIONING. NO EXTREMETY MOVEMENT ATT.
--- NOTE | 2022-12-08 21:13 | NUR ---
PT BG CHECK AND INSULIN READJUSTED PER PROTOCOL. RT AT BEDSIDE.
--- NOTE | 2022-12-08 21:20 | NUR ---
DISCUSSED PATIENT CONCERNS WITH . DECLINED TO COME TO THE UNIT FOR PATIENT CARE DISCUSSION PER SHANK TAPER REQUEST. IV FLUIDS VERIFIED; D5 1/2NS @ 125 ML/HR LABS ADDED FOR 2200, INCLUDING VBG PER RT REQUEST ELEVATED HR AND TEMP ALSO DISCUSSED; MD REQUEST PRN TYLNEOL BE CONTINUED. NO OTHER ORDERS RECEIVED. WILL FOLLOW UP WITH 2200 LABS.
--- NOTE | 2022-12-08 22:23 | NUR ---
PT LABS DRAWN FROM CL, 10ML WASTED. HOB AT 30 DEGREES.
--- NOTE | 2022-12-09 | NUR ---
PT ASSESSMENT COMPLETED. ORAL CARE AND ORAL SUCTIONING COMPLETE. HOULRLY BG MONITORED WITH INSULIN ADJUSTMENT PER ORDERS.
--- NOTE | 2022-12-09 02:12 | NUR ---
TO PT ROOM FOR MEDICAION ADMINISTRATION. PT GRIMACES WITH BG FINGER STICK AND SLIGHT LEG MOVEMENT. PT CONTINUES ON COOLING BLANKET WITH TEMP OF 100.4.
--- NOTE | 2022-12-09 03:18 | NUR ---
PT CONTINUES TO HAVE A -4 RASS. VERSED DRIP CHANGED FROM 2 TO 1MG/HR, AND CONTINUOUS MORPHINE CHANGED TO 0.5MG/HR. PT REPOSITIONED IN BED.
--- NOTE | 2022-12-09 04:30 | NUR ---
PT HOURLY BG CHECKED. INSULIN GTT CHANGED ACCORDING TO PROTOCOL. RT CALLED TO OBSERVE PT BREATHING. RT SUCTIONED AND PT IMPROVED. TEMP REMAINS ELEVATED WITH PT ON COOLING PAD. HAS HAD GOOD UO THROUGHOUT THE SHIFT.
--- NOTE | 2022-12-09 05:07 | NUR ---
PT HRLY BG MONITORED AND INSULIN DRIP CHANGED PER PROTOCOL PT REPOSITIONED IN BED.
--- NOTE | 2022-12-09 05:24 | NUR ---
PT LABS DRAWN FROM CL. 10ML WASTED PRIOR TO DRAW.
--- NOTE | 2022-12-09 07:15 | NUR ---
PATIENT INTUBATED AND SEDATED, BILATERAL UPPER LIMB WRIST RESTRAINTS IN PLACE. MORPHINE SKEIN BLEACHER INFUSING AT 0.5MG/HR. VERSED GTT AT 1MG/HR. INSULIN GTT AT 3.6 UNITS/HR AND D5 1/2 NS AT 125 CC/HR AT TIME OF REPORT AND TRANSFER OF CARE. VENT SETTINGS AT FIO2 25% RR 20 PEEP 5 TV 430. OG TO INTERMITTENT LWS DRAINING YELLOWISH/GREEN THICK BILE-LIKE DRAINAGE. NO BM REPORTED FROM NIGHTSHIFT. BEST TO GRAVITY DRAINING CLEAR, YELLOW URINE.
--- NOTE | 2022-12-09 08:30 | NUR ---
LE: PATIENT INTUBATED AND SEDATED, WITH EYES CLOSED. PATIENT RESPONDS TO PAINFUL STIMULI ONLY. DOES NOT RESPOND TO VOICE COMMANDS. SEE PREVIOUS NOTE FOR VENT SETTINGS. ETT IN PLACE LUNGS COARSE IN BASES WITH WET SOUNDS BILATERALLY, LEFT GREATER THAN RIGHT. UPPER LOBES CLEAR. VERSED AND MORPHINE INFUSING WITHOUT DIFFICULTY. RIGHT IJ CENTRAL LINE DRESSING AND SITE WNL. VERSED AND MORPHINE TURNED OFF FOR 15-20 MIN WHILE AOC OPERATIONS INTELLIGENCE OFFICER PLACED PATIENT ON CPAP. PATIENT BEGAN TO GRIMACE TO PAIN AND TO VOICE WITH MEDICATIONS OFF. PATIENT BREATHING OVER CPAP SETTINGS. RR TACHYPENIC AND PATIENT'S BP ELEVATED. RESTARTED MORPHINE AND VERSED DRIPS (SEE FLOWSHEETS FOR RATES). PATIENT SETTLED NICELY AND WAS PUT BACK ON RATE. RR EVEN AND UNLABORED AND BP SETTLED BACK WNL. DISCUSSED WITH . PLAN TO WEAN MORPHINE AND USE PRN MEDICATION IF PATIENT TOLERATES. ABDOMEN SOFT, BOWEL SOUNDS ARE VERY HYPOACTIVE, AUSCULTATION GREATER THAN 2 MIN TO EACH QUADRANT TO HEAR BOWEL SOUNDS. PATIENT HAS GENERALIZED EDEMA WELL DEPENDANT EDEMA. NO PITTING NOTED AT THIS TIME. BEST CATH IS TO GRAVITY DRAINING CLEAR, YELLOW URINE. BEST CARE PERFORMED. PATIENT HAS LIGHT BROWN DISCHARGE FROM VAGINA AREA, PATIENT CLEANSED. BELIEVE IT TO BE MENSES. SKIN UNDER PANNUS AREA RAW, AND EXCORIATED. POWDER APPLIED AND DRIED AREA. FOAM DRESSING TO COCCYX ALSO APPLIED FOR PREVENTIVE MEASURES. HEELS FLOATED BILATERALLY WITH SOFT BOOTS IN PLACE.
--- NOTE | 2022-12-09 09:01 | NUR ---
0755 PLACED PATIENT ON SBT WITH A PEEP OF 5 AND PS OF 7. PT TOLERATED FAIRLY WELL BUT RR CONTINUED TO BE 27 TO 30. PIP 13 MEAN 8.0 VT 687 VE 14.7 RR 30 ETCO2 39 HR 131 PLACED PT BACK ON AC/VC WITH PREVIOUS SETTINGS AT 0803. WILL AWAIT FURTHER INSTRUCTIONS FROM
--- NOTE | 2022-12-09 12:00 | NUR ---
PATIENT REMAINS INTUBATED AND SEDATED. FAMILY AT BEDSIDE. NO SIGNIFICANT CHANGES FROM AM ASSESSMENT OTHER THAN PATIENT OPENING EYES TO VOICE AND LIGHT STIMULATION. DOES NOT FOLLOW COMMANDS. PATIENT HAS THICK MODERATE SECRETIONS REQUIRING SUCTION. BEST IN PLACE TO GRAVITY DRAINING CLEAR, YELLOW URINE
--- NOTE | 2022-12-09 12:00 | NUR ---
CCU RN'S FEEL SLIGHT IMPROVEMEMNT IN KIDNEY FUNCTION. PARENTS IN RM, GAVE ENCOURAGEMENT. MOTHER MORE HOPEFUL. HAD PRAYER, WILL FOLLOW
--- NOTE | 2022-12-09 13:00 | NUR ---
JEVITY INITIATED AT 25 CC/HR . MORPHINE PIANO TECHNICIAN OFF.
--- NOTE | 2022-12-09 13:00 | NUR ---
JEVITY 1.2 INITIATED VIA OG TUBE, PLACEMENT CONFIRMED VIA AUSCULTATION AND ASPIRATION. RATE 25ML/HR, GOAL IS 60 ML/HR. PATIENT RESTING WELL, OPENS EYES TO STIMULATION, WITHDRAWLS FROM PAINFUL STIMULI AND GRIMACES. MORPHINE WAX MACHINE OPERATOR TURNED OFF AT 1300 ALSO. PATIENT'S BP 86/47 (58). NOTIFIED AND ORDERS RECEIVED.
--- NOTE | 2022-12-09 13:50 | NUR ---
PATIENT CONTIUES TO BE ON VENT AND SEDATED. MOTHER IS AT BEDSIDE. PATIENT OWNS HER OWN HOUSE AND HAS 2 CHILDRE THAT ARE 5 AND 14 YEARS OF AGE. FAMILY MEMBERS ARE TAKING CARE OF THE CHILDREN.
--- NOTE | 2022-12-09 14:30 | NUR ---
VERSED DRIP TURNED OFF. TOTAL 4.5 ML INFUSED FROM BAG. PER EDD, PHARMACY, BAG IS GOOD FOR 24HRS. WILL HAND OFF TO METAL CLEANER NURSE REMAINING AMOUNT OF VERSED. BAG REMAINS AT BEDSIDE.
--- NOTE | 2022-12-09 16:35 | NUR ---
PATIENT BATHED AND LINENS CHANGED - PATIENT'S HANDS, FEET, KNEES, AND AROUND NOSE AND MOUTH REDDENED. PATIENT DOES NOT GRIMACE IF PAINFUL. DR. IBRAHIM NOTIFIED. WILL CONTINUE TF AT 25CC/HR WITHOUT INCREASING RATE. PATIENT'S FAMILY SAID PATIENT HAD BEEN PREVIOUSLY TRYING SOY AND ALMOND MILK AND HAD A REACTION TO ONE BUT THEY CANNOT REMEMBER WHICH. STATED PATIENT BROKE OUT IN A RASH THAT WAS ITCHY. THERE IS SOY IN THE JEVITY THAT PATIENT IS RECEIVING. NOTIFIED OF THIS AT 1836.
--- NOTE | 2022-12-09 17:38 | NUR ---
NOTIFIED OF PATIENT'S BG 389. ORDERS TO CHANGE IV FLUIDS RECEIVED.
--- NOTE | 2022-12-09 17:54 | NUR ---
15 ML MORPHINE WASTED FROM REMAINING COLLETER. WITNESSED BY NEPTALI Solis RN.
--- NOTE | 2022-12-09 20:17 | NUR ---
NOTIFIED OF PT BG 379. NO NEW ORDERS ATT. GIVEN VO OK TO SWITCH FROM TYLENOL SUPPOSITORY TO PO TYLENOL.
--- NOTE | 2022-12-09 20:44 | NUR ---
CLARIFIED PRN TYLNEOL DOSE WITH AND PRN MOTRIN ADDED TO TREAT FEVER.
--- NOTE | 2022-12-09 21:12 | NUR ---
PT ASSESSMENT AND MEDICATION ADMINISTRATION COMPLETED. PT IS NOT RECEIVING SEDATION. VENT SETTINGS: FI02 21%, VT 430, RR 16, PEEP 5. PT GIVEN PO TYLENOL VIA OG TUBE FOR TEMP 101.8. FAMILY AT BEDSIDE.
--- NOTE | 2022-12-09 22:04 | NUR ---
ROUNDED ON PT. PT APPEARS TO BE RESTING COMFORTABLY. NO SEDATION ATT. IV FLUIDS RUNNING. TF RUNNING. FAMILY AT BEDSIDE. PT REMAINS TACHYCARDIC AND TACHYPNEIC.
--- NOTE | 2022-12-09 23:12 | NUR ---
PT REPOSITIONED IN BED. RESTRAINTS RELEASED WITH ROM COMPLETED. IV FLUIDS RUNNING. TF RUNNING, PT APPEARS TO BE TOLERATING AT 25ML/HR. REDNESS ON HANDS, FEET, AND THIGHS CONTINUES.
--- NOTE | 2022-12-10 02:07 | NUR ---
PT BG 414, GIVEN 13UNITS PER SLIDING SCALE ORDER. NOTIFIED. NO ADDITIONAL ORDERS ATT.
--- NOTE | 2022-12-10 03:07 | NUR ---
PT REPOSITIONED IN BED. RESTRAINTS RELEASED AND ROM COMPLETED. PT OPENED EYES BUT DOES NOT FOLLOW COMMANDS. IV FLUIDS RUNNING. TF RUNNING.
--- NOTE | 2022-12-10 04:16 | NUR ---
PT ASSESSMENT AND ORAL CARE COMPLETED. PT HAD 30ML RESIDUAL FROM OG TUBE. IV FLUIDS RUNNING. CONTINUES TO HAVE GOOD UO.
--- NOTE | 2022-12-10 07:30 | NUR ---
REPORT RECIEVED. REMAINS ON VENT.
--- NOTE | 2022-12-10 08:00 | NUR ---
ASSESSMENT DONE. PATIENT WILL WITHDRAWAL TO CARES AND PAINFUL STIMULI. NOT FOLLOWING COMMANDS. PUPILS VERY SLUGGISH IN RESPONSE TO LIGHT. VENT SETTINGS: TV-430, FIO2-21, AC-16, RR TOTAL-22, PEEP-5, PIP-14, ETCO2-34. ETT TAPED 23 AT TEETH. BEST CATH PATENT. OGT WITH TUBE FEEDING INFUSING AT 25 ML/HR. IRRIGATED WITH 200 ML TAP WATER. AFTER CHECKING FOR RESIDUAL. NO RESIDUAL AT THIS TIME. WILL INCREASE TUBE FEED TO 35 ML/HR. PER DR. PATRICE FULLER. SCD'S AND HEEL PROTECTORS IN PLACE. ORAL CARE PROVIDED. REPOSITIONED.
--- NOTE | 2022-12-10 08:20 | NUR ---
DR. IBRAHIM HERE TO SEE PATIENT. Eliza PATELER TO BE HUNG. IV ABX INFUSING. SUCTIONED FOR MOD AMOUNT WHITE SPUTUM.
--- NOTE | 2022-12-10 08:25 | NUR ---
K RIDER INFUSING AT 131 ML/HR. MAINTENANCE IVF ON HOLD AT THIS TIME.
--- NOTE | 2022-12-10 11:20 | NUR ---
TRANSFERRED TO [facility] W/O PROBLEMS. REMAINS ON TUBE FEEDING AT 35 ML/HR. K RIDER AT 131. BEST CATH PATENT. NO CHANGES IN VENT SETTINGS. ETT 23.0 AT TEETH.
--- NOTE | 2022-12-10 17:00 | NUR ---
DR. IBRAHIM HERE TO SEE PATIENT. ORDERS RECIEVED.
--- NOTE | 2022-12-10 17:10 | NUR ---
LABS DRAWN PER ORDERS. INCLUDING BCX2 SITES OBTAINTED AX TEMP 100.8, URINE SENT TO LAB. PATIENT IS MOVING HEAD AND ARMS. NOT FOLLOWING COMMANDS. NOT BLINKING WHEN MY HAND IS NEAR FACE.
--- NOTE | 2022-12-10 17:25 | NUR ---
NOW ON CPAP PER DR. IBRAHIM ORDER. RT WILL LEAVE PATIENTON BIPAP FOR APPROX 11/2 HOUR TO EXERCISE LUNGS.
--- NOTE | 2022-12-10 17:30 | NUR ---
BEST TEMP PROBE DC'D PER DR. IBRAHIM REQUEST.
--- NOTE | 2022-12-10 17:45 | NUR ---
MOVING HEAD MORE, LOOKS MORE RESTLESS WHILE VENT IN CPAP MODE. RR UP TO 40.
--- NOTE | 2022-12-10 18:00 | NUR ---
VENT BACK TO FULL SUPPORT PER RT. IVF TO OFF.
--- NOTE | 2022-12-10 19:02 | NUR ---
MEDS AND 300 ML FREE WATER GIVEN PER ORDERS.
--- NOTE | 2022-12-10 20:22 | NUR ---
PATIENT MORE RESTLESS WITH EYES OPEN, BUT NOT FOLLOWING COMMANDS. DISCUSSED WITH AND PROPOFOL ORDERED FOR RASS SCORE OF 0. VERIFIED VIA REPEAT BACK.
--- NOTE | 2022-12-10 21:00 | NUR ---
PROPOFOL STARTED AT 5 MCG/KG/MIN; TITRATED TO 10 MCG/KG/MIN TO REACH RASS GOAL OF 0. PATIENT RESPONDS TO PAINFUL STIMULI AND MOVES HER HEAD, EYES ARE OPEN BUT NOT TRACKING. PUPIL RESPONCE IS SLIGHTLY SLUGGISH. PATIENT TOLERATING VENT. SETTINGS PER RT. ORAL CARE DONE. LUNG SOUNDS ARE CORSE AND DIM IN THE BASES. SMALL AMOUNT OF THICK SECREATIONS NOTED. GOOD URINE OUTPUT NOTED. BEST CARE DONE. URINE IS CLEAR YELLOW WITH LARGE AMOUNT OF SEDIMENT. SUPPOSITORY ADMINISTERED PER ORDER. PATIENT HAS MODERATE AMOUNT OF BROWN DISCHARGE NOTED FROM THE VAGINA. BEDBATH PROVIDED AND DESENEX POWDER APPLIED TO PANIS AND UNDER BREAST. SKIN IN PANIS IMPROVING. BREAKDOWN NOTED UNDER TUBE [place] ON UPPER LIP. ATTEMPT MADE TO REDUCE PRESSURE AND XEROFORM PLACED BETWEEN LIP AND PAD. ORAL CARE DONE. PATIENT REPOSITIONED. SOFT RESTRAINTS IN PLACE ON MICHAEL WRIST. HEEL PROTECTORS ON. CENTRAL LINE FLUSHED WITH 10 MLS NS EACH; PROPOFOL IN DISTAL PORT AND OTHER PORTS HEP-LOCKED. OG TUBE FLUSHED WITH 300 MLS FREE WATER AND TUBE FEEDS CONTINUED AT 45 ML/HR.
--- NOTE | 2022-12-10 23:00 | NUR ---
ACCU CHECK AND SSI DONE. PATIENT TOLERATING VENT AND PROPOFOL CONTINUED AT 10 MCG/KG/MIN. RASS -1 WHEN PATIENT NOT STIMULATE.
--- NOTE | 2022-12-11 01:00 | NUR ---
OG TUBE FLUSHED WITH 350 MLS FREE WATER, SCHEUDLED PO K+ PROVIDED. TUBE FEEDINGS INCREASED TO 60 ML/HR.
--- NOTE | 2022-12-11 02:30 | NUR ---
accu check and ssi per order. patient rass score is -1; patient moves head side to side and retracts from painful stimuli. vs stable. propofol at 10 mcg/kg/min
--- NOTE | 2022-12-11 04:30 | NUR ---
PATIENT TOLERATING VENT. NO CHANGES IN SETTINGS OR SEDATION. GOOD URINE OUTPUT. ORAL CARE DONE. PATIENT CONTINUES TO HAVE THICK SECREATIONS IN ET TUBE REQUIRING IN-LINE SUCTION.
--- NOTE | 2022-12-11 06:00 | NUR ---
LABS COLLECTED FROM CENTRAL LINE PER PROTOCOL. REQUESTED RT COLLECT A SPUTUM CULTURE; WHICH HE DID. BEST EMPTIED. PATIENT REPOSITIONED. VS STABLE.
--- NOTE | 2022-12-11 07:30 | NUR ---
REPORT RECIEVED. PATIENT INCONT OF LARGE SOFT BROWN STOOL. WHEN CLEANING PATIENT, SMALL OPENED AREA NOTED JUST BELOW COCCXY ALLEVYN APPLIED. SPONGE BATH GIVEN, POWDER APPLIED TO ÁLVARO AREA AND UNDER PANNUS. TUBE FEEDING CONTINUE AT 60 ML/HR. WHEN WORKING WITH PATIENT, TUBE FEEDING ON HOLD WHEN HOB DOWN. ETT TAPED 23 AT TEETH, VENT SETTINGS TV-430,FIO2 21,PEEP-5, RR-16, TOTAL RR-25,ETCO2-32, PIP-15.
--- NOTE | 2022-12-11 08:00 | NUR ---
ASSESSMENT DONE. PROPOFOL GTT INFUSING AT 10 MCG/KG/MIN TO RIJ TRIPLE LUMEM CATH, BOTH OTHER PORTS CAPPED. DRESSING TO RIF INTACT, NO DRAINAGE NOTED. BEST CATH PATENT. SCD'S REAPPLIED.
--- NOTE | 2022-12-11 10:20 | NUR ---
DR. IBRAHIM HERE TO SEE PATIENT. ORDERS RECEIVED.
--- NOTE | 2022-12-11 10:20 | NUR ---
DR. SÁNCHEZ HERE FOR CONSULT REGARDING BOWNISH FOUL SMELLING DISCHARGE FROM VAGINA. PATIENT POSITIONED FOR MD TO DO PELVIC. SEVERAL RN'S IN ROOM TO HELP WITH THIS PROCEEDURE. PATIENT TOLERATED WELL. SPEC SENT TO LAB. ÁLVARO AREA WASHED, CREAM AND POWDER APPLIED.
--- NOTE | 2022-12-11 11:10 | NUR ---
TUBE FEDING TO OFF. WATER AT 150 ML/HR CONTINOUS HUNG TO OGT, THIS INFUSING VIA FEEDING PUMP. WILL GIVE BOLUS FEEDS ORDERED Q 6 HR.
--- NOTE | 2022-12-11 12:00 | NUR ---
ASSESSMENT DONE. REMAINS ON CPAP MOD VIA VENT. COUGHING FREQUENTLY. HAS STRONG COUGH, HAS BEEN SUCTIONED PRN. MOVING HEAD AND ARMS. REMAINS WITH WRIST RESTRAINTS ON. ABD SOFT.
--- NOTE | 2022-12-11 13:20 | NUR ---
REMAINS ON CPAP VIA VENT. HR-140, RR-31. INCONT OF STOOL. BED LINENS CHANGED AND REPOSITIONED IN BED. WITH MOVEMENT O2 SAT DOWN TO LOW 80'S. FIO2 INCREASED TO 100 WHILE UNTIL CARES COMPLETED. PATIENT HAS MORE EYE CONTACT, WILL BLINK WHEN HAND NEAR EYES, WILL NOT SQUEEZE HAND WHEN ASKED. OVERALL, PATIENT IS MORE REPONSIVE. WATER CONTIUES TO INFUSE AT 150 ML/HR VIA FEEDING PUMP. THIS ON HOLD WHEN CARES BEING DONE HOB FLAT. IS MORE AGITATED. FREQUENT COUGH.
--- NOTE | 2022-12-11 13:50 | NUR ---
RT HERE, VENT MODE CHANGED AC, NOW OFF CPAP, PATIENT IS RESTLESS. HOB ELEVATED HR REMAINS IN 140'S AND RR 30'S. DR. IBRAHIM AWARE OF THIS. ORDERS RECIEVED TO RESTART PROPOFOL AT 5MG/KG/MIN.
--- NOTE | 2022-12-11 14:10 | NUR ---
ACCUCHECK-310, 15 UNITS INSULIN GIVEN, OTEHR MEDICATIONS GIVEN AT THIS TIME INCLUDE PHOSPHORUS VIA OGT AND TORDOL 15 MG IV. IV ABX HUNG. AX TEMP 102.0.
--- NOTE | 2022-12-11 16:00 | NUR ---
ASSESSMENT UNCHANGED. MORE RESPONSIVE.
--- NOTE | 2022-12-11 18:00 | NUR ---
accucheck-226. 6 UNITS INSULIN GIVEN. INC OF STOOL, BOLUS FEEDING DONE PER ORDERS. PROPOFOL GTT INFUSING AT 5 MCG/KG/MIN. WATER INFUSING AT 150 ML/HR TO OGT. BEST CATH PATENT.
--- NOTE | 2022-12-11 18:20 | NUR ---
MORE RESTLESS. PROPOFOL GTT INCREASED TO 15 MG/KG/MIN. AX TEMP 102.0
--- NOTE | 2022-12-11 19:32 | NUR ---
REPORT TO NEXT SHIFT.
--- NOTE | 2022-12-11 20:00 | NUR ---
PATIENT HAD SMALL SOFT BM. ALYVENS IN PLACE ON COCCYX, BARRIER SPRAY APPLIED. PATIENT MAKES PERPOSEFUL MOVEMENTS TO PUSH AGAINST STAFF HOLDING HER ON HER SIDE DURING THIS ARVIND CARE AND MAKES FACIAL EXPRESSIONS WHEN WIPED THAT APPEAR UNCOMFORTABLE. PATIENT REACHED FOR ET TUBE SLOWLY WHEN RESTRAINTS WERE UNSECURED. PROPOFOL INCREASED FROM 15 TO 20 MCG/KG/MIN. POSITIONED THE PATIENT FOR COMOFRT.
--- NOTE | 2022-12-11 20:15 | NUR ---
PATIENT RASS SCORE +1, NOW 0 AFTER INCREASING SEDATION. PATIENT'S EYES ARE OPEN TO SOUND AND ATTEMPTS MADE TO TRACK STAFF'S VOICE. PATIENT HAVING SOME ORAL AND ET SECREATIONS; THICK AND ARANA IN COLOR. BREATHING OVER THE VENT AT A RR 25. PATIENT IS WARM TO THE TOUCH AND AXILLARY TEMP IS 102.0F. ROOM TEMP DECREASED AND COOL WASH CLOTH APPLIED. ORAL CARE DONE. SCHEUDLED OINTMENT AND PODER APPLIED TO PANIS FOLDS AND ARVIND AREA. BEST CARE DONE. OUTPUT IS QS. SCDs IN PLACE. PATIENT HOB ELEVATED.
--- NOTE | 2022-12-11 22:02 | NUR ---
PATIENT IS MORE RESTLESS, VENT ALARMS FOR HIGH AIRWAY PRESSURE PATIENT BITES ON TUBE AND COUGHING WITH SECREATIONS IN THE ET TUBE. IN-LINE SUCTIONING DONE. INCREASED SEDATION AND DISCUSSED WITH MD. ORDERS FOR PRN FETANYL TO BE ENTERED BY .
--- NOTE | 2022-12-12 | NUR ---
patient repositioned; tolerating vent with propofol at 25 mcg/kg/min. vs stable. HR elevated 130's. temp continues to be elevated. rass 0.
--- NOTE | 2022-12-12 04:00 | NUR ---
PATIENT IS TRACKING VOICE MORE OFTEN BUT NOT FOLLOWING COMMANDS. ASSESSMENT UNCHANGED. VS STABLE. PATIENT PROVIDED PRN FETANYL FOR PAIN AND PROPOFOL FOR SEDATION. RASS -1.
--- NOTE | 2022-12-12 06:15 | NUR ---
LABS DRAWN. PATIENT HAD LARGE BM. ÁLVARO CARE DONE. BARRIER CREAM APPLIED. BEST EMPTIED. BOLUS FEEDINGS DONE. PRN MOTRIN AND TYLENOL FOR AXILLARY TEMP 102.2 F. PATIENT PROVIDED PRN FETANYL FOR RASS +2.
--- NOTE | 2022-12-12 07:40 | NUR ---
REPORT RECIEVED. PATIENT REMAINS ON VENT, FIO2-21, VT-430, RR-16, TOTAL RR-30, PEEP-5, PIP-16, ETCO2-30. ETT TAPED 23 AT TEETH. FREE WATER OFF NOW. PROPOFOL GTT INFUSING AT 25 MCG/KG/MIN TO BLUE PORT. WHITE AND BROWN PORT CAPPED ON RIJ CAPPED. DRESSING INTACT. BEST CATH PATENT.PATEINT IS ALBE TO BLINK EYES TWICE WHEN ASK.IS TRACKING WITH EYES. NOT ABLE TO SQUEEZE HANDS. ASSESSMENT DONE.
--- NOTE | 2022-12-12 08:04 | NUR ---
INTO PATIENTS ROOM, CYNTHIA SAHU AND DEVIN HUERTA AT BEDSIDE. PATIENT REMAINS INTUBATED, BUT IS MORE RESPONSIVE. UPDATE RECVD FROM CYNTHIA SAHU. FEVER STILL PRESENT. PATIENT IS ABLE TO FOLLOW SOME COMMANDS. WILL CONTINUE TO CHECK IN WITH PATIENT AND FAMILY.
--- NOTE | 2022-12-12 08:20 | NUR ---
CHEST XRAY DONE.
--- NOTE | 2022-12-12 08:30 | NUR ---
PATIENT AWAKE IN BED, RN AT BEDSIDE AND COMMUNICATING WITH PATIENT. PATIENT UNABLE TO SQUEEZE HANDS, BUT IS RESPONDING TO SOME COMMANDS (BLINKING TWICE, TURNING HEAD TO FACE PATIENT SPEAKING TO HER) VITALS AND I&OS CHARTED. FACE WASHED. PATIENT BEING CLOSELY MONITORED.
--- NOTE | 2022-12-12 08:30 | NUR ---
FENTANLY 50 MCG IV GIVEN FOR COMFORT. FREE WATER RESTARTED VIA FEEDING PUMP AT 150 ML/HR.
--- NOTE | 2022-12-12 08:35 | NUR ---
FREE WATER OFF AGAIN AFTER OGT FLUSHED.
--- NOTE | 2022-12-12 09:15 | NUR ---
INONT OF MED AMOUNT OF LIGHT BROWN SEMI-LIQUID STOOL.
--- NOTE | 2022-12-12 09:58 | NUR ---
DR. IBRAHIM HERE TO SEE PATIENT, ORDERS RECIEVED TO PLACE ON CPAP. RT HERE AND AWARE.
--- NOTE | 2022-12-12 10:00 | NUR ---
PROPOFOL GTT OFF.
--- NOTE | 2022-12-12 10:10 | NUR ---
PATIENT IS TRACKING, ATTEMPTING TO FOLLOW COMMANDS. PATIENT HAS BEEN TOLD PLAN OF CARE SEVERAL TIMES TODAY. I FEEL LIKE PATIENT IS UNDERSTANDING.
--- NOTE | 2022-12-12 10:30 | NUR ---
INC OF STOOL. REMAINS AWAKE AND ALERT. CONTINUES ON CPAP VIA VENT. NO INCREASED RESP DISTRESS NOTED.
--- NOTE | 2022-12-12 10:59 | NUR ---
2PA, BEDBATH AND BEST CARE PROVIDED. PATIENT WAS INCONTINENT OF STOOL. CHG WIPES AND WASHCLOTH USED. SOFT RESTRAINTS IN PLACE.
--- NOTE | 2022-12-12 11:05 | NUR ---
Placed Pt on CPAP PS at 1000 with the following stats on the ventilator CPAP 5 PS 5 HR 125 RR 21 MEAN 7.9 VT 562 VE 13.7 FIO2 21% FOR SATS OF 95% NIF - 65 RSB 44 ETCO2 30 AT 1100 PT WAS DOING WELL AND PT HAS GOOD CUFF LEAK WHEN CHECKED. PT'S STATS ARE FOLLOWS AT THIS TIME: CPAP 5 PS 5 HR 122 PIP 12 MEAN 7.4 VT 668 RR 19 FIO2 21% FOR SATS OF 94% ETCO2 30 PT DOING WELL AND RT FEELS PT COULD BE EXTUBATED.
--- NOTE | 2022-12-12 11:25 | NUR ---
ORDERS RECIEVED TO EXTABATE. THIS DONE. TOLERATED WELL. NOW ON O2 VIA OXYMASK AT 2 L. HAS HARSH COUGH. IS TRYING TO SAY FEW WORDS. VERY DIFFICULT TO HEAR AND UNDERSTAND. HOB IS ELEVATED.
--- NOTE | 2022-12-12 11:47 | NUR ---
Pt extubated to a 2L/min oxymask. Pt able to say hello when asked though pt does have some edema and voice is weak. No complications with the extubation procedure.
--- NOTE | 2022-12-12 12:00 | NUR ---
ASSESSMENT DONE. IS TAKING CLEAR LIQUIDS, SIPS OF WATER AND PHOSPHORUS. HOB ELEVATED. IV STARTED TO L INNER FA. ORDERS RECEIVED TO DC RIJ, THIS DONE AND TIP SENT TO LAB. BEST CATH DC'D AND EMPTIED FOR 350 CC URINE. RESTRAINTS DC'D WHEN EXTABATED. PATIENT IS EXTREMELY WEAK.
--- NOTE | 2022-12-12 12:15 | NUR ---
ASKING TO GET OUT OF TO URINATE, EXPLAINED TO PATIENT WHY THIS CAN NOT BE DONE. PATIENT FRUSTRATED. UNABLE TO VOID. ASSESSMENT DONE.
--- NOTE | 2022-12-12 12:38 | NUR ---
PATIENT NOW EXTUBATED. TUBE FEEDING D/C'D AND CLEAR LIQ DIET STARTED. PER NURSING, PATIENT IS VERY WEAK. WILL SEE HOW SHE DOES WITH EATING/DRINKING. SHE WOULD BENEFIT FROM ENSURE MAX BID TO OPTIMIZE PROTEIN AND NUTRIENT INTAKE. WILL CONTINUE TO MONITOR.
--- NOTE | 2022-12-12 12:41 | CONS ---
[facility] [address], [place] [address] Signed DATE OF CONSULTATION: 12/11/2022 REQUESTING PHYSICIAN: Dr. Cai. Consult requested because of bloody vaginal discharge with odor. HISTORY: The patient is a 37-year-old female, who was admitted on December 06, unresponsive in DKA with acute pancreatitis as well as probable aspiration pneumonia. Unfortunately, since her admission, the patient has been unable to provide any history at all and she is still ventilated and unable to respond. The nurses report that she has had some vaginal brownish discharge for the last few days and they have noticed a very foul odor. Unfortunately, there is no menstrual history available. No control history is available either. On her exam, her vital signs are stable. She is nonresponsive. She is ventilated. With a great deal of effort, the patient was placed on a bedpan in the bed for evaluation of the vaginal discharge. There was significant excoriation of the external genitalia. No blood was identified. On speculum exam, there was a moderate amount of white discharge. No odor was appreciated. There was no evidence of any retained tampon. There was no blood in the vagina. GC/CT and wet preps were obtained. Digital exam confirmed that there was no evidence of any retained tampon. The cervix was palpated and was normal. The uterus and adnexa could not be appreciated given the patient's morbid obesity. IMPRESSION: Possible vaginal infection. Yeast vulvovaginitis. PLAN: Check wet prep and GC chlamydia. Add clotrimazole cream prior to miconazole powder use b.i.d. for the intertrigo. MD DEEDEE Chapman/FOZIA /[id number] Electronically Signed By: ERI SÁNCHEZ MD 12/12/22 1241 PATIENT NAME: ALINA MORALES CONSULTATION DATE OF : 81 REPORT #: [id number] PHYSICIAN: ERI SÁNCHEZ MD PCP: ERNST KAY PAC REPORT IS CONFIDENTIAL AND NOT TO BE RELEASED WITHOUT AUTHORIZATION [address] [place], [place] [address] Signed Copies: ~ Electronically Signed By: ERI SÁNCHEZ MD 12/12/22 1241 PATIENT NAME: ALINA MORALES CONSULTATION DATE OF : 81 REPORT #: [id number] PHYSICIAN: ERI SÁNCHEZ MD PCP: ERNST KAY PAC REPORT IS CONFIDENTIAL AND NOT TO BE RELEASED WITHOUT AUTHORIZATION
--- NOTE | 2022-12-12 13:40 | NUR ---
SPEECH THERAY HERE TO WORK WITH PATIENT. PATIENT HAS HAD TWO LIQUID BM'S SINCE BEING EXTABATED.
--- NOTE | 2022-12-12 13:48 | NUR ---
PATIENT ON BEDPAN FOR BM AND UNMEASURED VOID. PATIENT ABLE TO VERBALIZE BATHROOM NEEDS. PATIENT DRANK ENTIRE STYROFOAM CUP OF WATER AND PHOS. PROVIDED BY LUIS ALBERTO MARIE. PATIENT HAS NO UPPER TEETH, SHE STATES SHE "RECENTLY" HAD THEM ALL PULLED AND HAS NOT HAD A FOLLOWUP. MOM AND FAMILY MEMBER IN ROOM AT THIS TIME.
--- NOTE | 2022-12-12 14:00 | NUR ---
IV ABX HUNG PER ORDERS. FAMILY MEMBERS ARE IN ROOM.
--- NOTE | 2022-12-12 14:16 | NUR ---
PT IS BEING WEANED FROM VENT. SHE REPONDED TO MY VOICE, KNODDED YES THAT SHE RECOGNIZED ME. PT HELD MY HAND-HAD PRAYER, GAVE ENCURAGEMENT. WILL FOLLOW
--- NOTE | 2022-12-12 14:30 | NUR ---
CONNECTED WITH PTS' FAMILY IN [place]. MOTHER BRANDT SEEMS RELIEVED AND ANXIOUS WITH PTS' POSITIVE RESPONSE TO WEANING OF VENT. BRANDT CONFIDENT PT WILL RESPOND AND CONTINUE TO IMPROVE. GAVE BLESSING AND WILL FOLLOW.
--- NOTE | 2022-12-12 16:10 | NUR ---
AFTER TAKING SIP OF WATER, PATIENT WITH INCREASE COUGH THEN C/O NAUSEA. ZOFRAN 4 MG IV GIVEN. INCREASED TIGHTNESS IN UPPER AIR WAY (MILD STRIDOR). COARSE ANTERIOR UPPER LUNG SOUNDS. C/O SHORTNESS OF BREATH. SAT 94, HOB ELEVATED. DR. IBRAHIM NOTIFIED. ORDERS RECIEVED.
--- NOTE | 2022-12-12 16:30 | NUR ---
SOLUMEDROL 60 MG IV GIVEN ORDERED. RECEMIC EPI TX GIVEN. PATEINT IS FEELING BETTER. DENIES FEELING SHORT OF BREATH NOW. PATIENT IS AWARE OF NPO STATUS, CONTINUES TO ASK FOR WATER. ORAL CARE GIVEN.
--- NOTE | 2022-12-12 18:52 | NUR ---
RESTING WITH HOB DOWN. NO DISTRESS NOTED. NO FUTHER CHANGES.
--- NOTE | 2022-12-12 20:00 | NUR ---
Bedside report received from outgoing nurse, LUIS ALBERTO butts. Patient was extubated today and is now on room air with water with 20K infusing at 85 ml/hr. Initial assessment performed with no critical measures necessary. All vital signs stable with no indications of pain or fever. Patient was placed on 2L oxygen via NC after breath sounds were coarse in upper lobes.
--- NOTE | 2022-12-12 22:00 | NUR ---
Purewick placed for urinary incontince per patient request. All vital signs stable.
--- NOTE | 2022-12-13 01:53 | NUR ---
Repeat assessment performed with no acute changes since previous assessment unless noted. All vital signs stable with no complaints or indications of respiratory distress, fever or pain. Compazine 10 mg IVP was administered for complaints of nausea. Will continue to monitor.
--- NOTE | 2022-12-13 02:00 | NUR ---
Patient resting quietly with no requests at this time. All vital signs stable with no indications of respiratory distess, fever or pain.
--- NOTE | 2022-12-13 04:00 | NUR ---
Repeat assessment performed with no acute changes since initial assessment. All vital signs stable with no complaints or indications of respiratory distress, fever, or pain. Patient resting comforably.
--- NOTE | 2022-12-13 06:00 | NUR ---
Patient received bed bath with change of Purewick. All vital signs stable with no complaints of respiratory distress, fever or pain.
--- NOTE | 2022-12-13 07:30 | NUR ---
REPORT RECIEVED. PATIENT IS RESTFUL IN BED. WILL NEED ANOTHER IV SITE. IV SITE TO LAC DC'D. PATIENT DENIES. PRESSURE SORE NOTED ON RIGHT HEAL. HEAL PROTECTORS ARE ON. PATIENT IS ASKING OF FOR ICE. TOLD PATIENT WE NEED TO WAIT UNTIL DR. IBRAHIM GETS HERE TO ASSESS HER. PATEINT IS UNDERSTANDING. ORAL CARE GIVEN.
--- NOTE | 2022-12-13 08:00 | NUR ---
IV STARTED TO RAC BY CHAN SAHU, ULTRASOUND USED TO PLACE 18 GA 2.5 INCH CATH. PATIENT TOLERATED WELL. ASSESSMENT COMPLETE. CONTINUES TO DENY PAIN.
--- NOTE | 2022-12-13 09:00 | NUR ---
PATIENT AWAKE IN BED, SISTER IN ROOM. PATIENT HAS PUREWICK IN PLACE, HOWEVER BED WAS SATURATED WITH URINE. BEDBATH AND COMPLETE BEDCHANGE PROVIDED. POWDER IN ÁLVARO AREA AND UNDER PANNUS. NEW PUREWICK IN PLACE. PATIENT ENCOURAGED TO MOVE AND USE LEFT HAND IT IS VERY WEAK. 2PS WITH THIS CLIENT SUPPORT REPRESENTATIVE AND LUIS ALBERTO MARIE. CALL LIGHT IN EASY REACH.
--- NOTE | 2022-12-13 09:30 | NUR ---
SPEECH THERAPY HERE TO SEE PATIENT. OKAY TO GIVE PATIENT MINCED AND MOIST FOOD, NO RESTRICTION ON FLUID.
--- NOTE | 2022-12-13 10:15 | NUR ---
FEEDING PATIENT BREAKFAST, TOLERATING WELL. PATIENT SISTER IN ROOM.
--- NOTE | 2022-12-13 10:47 | NUR ---
RESTING WITH HOB ELEVATED.
--- NOTE | 2022-12-13 11:25 | NUR ---
OCCUPATIONAL THERAPY HERE TO WORK WITH PATIENT.
--- NOTE | 2022-12-13 12:00 | NUR ---
DR. IBRAHIM HERE TO SEE PATIENT. ORDERS RECIEVED TO TRANSFER TO MED-SURG. MONITOR DC'D. ASSESSMENT DONE. THEN FEEDING PATIENT LUNCH. PATIENT HAS BETTER CONTROL OF RIGHT HAND THAN LEFT HAND. IS VERY EMOTIONAL AT TIMES.
--- NOTE | 2022-12-13 12:14 | NUR ---
PT IS EXTEBATED, AWAKE AND ALERT. PT RESPONDS TO MY VOICE, THANKED ME FOR PRAYING WITH HER YESTERDAY. GAVE ENOURAGEMENT, HER SISTER MIKEL AT BS. WILL FOLLOW NEEDED
--- NOTE | 2022-12-13 12:27 | NUR ---
Spoke with Nilo and her sister, Spring. Pt is childlike in her answers and questions. Attempted to discuss plan for discharge. Per sister, she is not sure if pt will be able to go to her moms. Pt does not feel she will be able to go home. Pt is not currently walking and has difficulty holding a protein shake as she is not able to grasp with her hands. Pt is willing to go to an IP rehab if they accept her. I will fax her chart to Jade at [facility].
--- NOTE | 2022-12-13 14:00 | NUR ---
DR. IBRAHIM AWARE OF PRESSURE SORE ON RIGHT HEAL AND OPEN AREA ON INNER RIGHT GLUTEAL AREA. ORDERS RECIEVED FOR WOUND CONSULT. PATIENT DENIES PAIN NAUSEA OR SHORTNESS OF BREATH.
--- NOTE | 2022-12-13 14:00 | NUR ---
MED REC COMPLETE
--- NOTE | 2022-12-13 14:20 | NUR ---
PHYS THERAPY HERE TO WORK WITH PATIENT, SEE PT NOTE.
--- NOTE | 2022-12-13 15:20 | NUR ---
Belem ALVARADO HERE TO SEE PATINT REGARDING WOUNDS, TREATMENT DOMNE BY HER. SEE WOUND CONSULT NOTE. PATIENT TOLERATING ALL TREATMENTS WELL.
--- NOTE | 2022-12-13 15:42 | NUR ---
ASKING FOR SOMETHING TO EAT, AIRCRAFT STRUCTURAL DESIGN ENGINEER FEEDIGN PATIENT . PATINE IS GAINING MORE CONTROL OF HANDS, REMAINS VERY WEAK.
--- NOTE | 2022-12-13 16:45 | NUR ---
REPORT TO MED-SURG. TO MED-SURG VIA BED.
--- NOTE | 2022-12-13 18:28 | NUR ---
Patient is using her own Victoza. Per recommendation, she will reiterate from 0.6mg sub-q daily for 7 days, then titrating to 1.2mg daily, then 1.8mg daily due to treatment interruption greater than 3 days
--- NOTE | 2022-12-13 18:28 | NUR ---
PATIENT GIVEN SS INSULIN + LONG ACTING INSULIN + METFORMIN. PATIENT TO USE BEDPAN WITH 3 ASSIST AND LARGE INCONTINENT VOID.
--- NOTE | 2022-12-13 18:42 | NUR ---
PATIENT HAD XL VOID. ÁLVARO CARE, SKIN CARE DONE. LINENS CHANGED. NEW GOWN PROVIDED. NEW CHUCKS IN PLACE. CALL LIGHT IN REACH. NO FURTHER NEEDS AT THIS TIME.
--- NOTE | 2022-12-13 19:40 | NUR ---
REPORT RECEIVED FROM DAY SHIFT RN. PT LYING IN BED ALERT. DENIES NEEDS AT THIS TIME. CALL LIGHT IN REACH. WHITE BOARD UPDATED.
--- NOTE | 2022-12-13 19:55 | NUR ---
CALL LIGHT ANSWERED. PATIENT NEEDED ASSISTANCE MORE PILLOW UNDER HER HEAD AND HEAD BED ADJUSTED. PERSONAL POWDER JUICE MADE PER PATIENT'S REQUEST.
--- NOTE | 2022-12-13 23:03 | NUR ---
EVENING ASSESSMENT COMPLETE. SCHEDULED MEDS ADMIN PER EMAR. IV ABX INFUSING WNL. PT DENIES PAIN OR NAUSEA. THIS RN AND SLEEP TECH COMPLETED BED BATH, WASHED HAIR, AND ORAL CARE. LINENS CHANGED. 2PA TO USE BEDPAN TO HAVE XL UNMEASURED VOID. ÁLVARO CARE DONE. CREAM AND POWDER PLACED IN ÁLVARO AREA AND UNDER PANNUS. PT WEAK IN ALL EXTREMITIES BUT ABLE TO ASSIST SOMEWHAT WITH CARES. ALLEVYN PLACED TO GLUTEAL CLEFT AND RIGHT HEEL. HEEL PROTECTOR ON RIGHT FOOT AND TOWELS UNDER ANKLES IN PLACE. OCCASIONAL COUGH NOTED. PT DENIES SOB. SpO2 HIGH 90'S ON RA. PT DENIES QUESTIONS OR CONCERNS. CALL LIGHT IN REACH.
--- NOTE | 2022-12-14 01:06 | NUR ---
PT UP TO BSC WITH 3PA AND MARITO STEADY TO HAVE XL BM AND VOID. STAFF ASSIST WITH ÁLVARO CARE. BACK TO BED, BRII WELL.
--- NOTE | 2022-12-14 01:55 | NUR ---
SCHEDULED MEDS ADMIN PER EMAR. IV ABX INFUSING PER ORDER. PRN FOR GENERALIZED DISCOMFORT ADMIN PER EMAR. ASSISTED TO REPOSITION WITH PILLOWS. NO FURTHER NEEDS.
--- NOTE | 2022-12-14 02:26 | NUR ---
CALL LIGHT ANSWERED. PT REPORTS SHE COULD NOT STOP COUGHING AND CHOKED ON PHLEGM THAT RESULTED IN SMALL AMOUNT OF EMESIS. GOWN AND LINENS CHANGED. PT REPOSITIONED TO RIGHT SIDE WITH PILLOWS. NO FURTHER NEEDS.
--- NOTE | 2022-12-14 03:15 | NUR ---
CALL LIGHT ANSWERED. PT REPORTS SCD ON LEFT LEG CAUSING PAIN AND REQUESTING TO HAVE IT OFF. EDUCATION PROVIDED. ATTEMPTED TO REPOSITION SCD, PT REPORTS CONTINUED PAIN. SCD REMOVED PER PT REQUEST FOR A SHORT WHILE.
--- NOTE | 2022-12-14 06:12 | NUR ---
PT AWAKE IN BED. VS AND I&O COMPLETE. IV ABX INFUSING PER ORDER. ASSESSMENT UNCHANGED. PT DENIES NEEDS. CALL LIGHT IN REACH.
--- NOTE | 2022-12-14 07:11 | NUR ---
Report from Nam Allen RN. Patient alert and oriented sitting awake in bed. Family member at bedside, denies needs at this time. Call light in reach.
--- NOTE | 2022-12-14 07:35 | NUR ---
PT IN BED. SISTER PRESENT AT BEDSIDE. STUDENT RN AND I LAWN SERVICE WORKER IN ROOM. BS COMPLETE. RN NOTIFIED. NO NEEDS AT THIS TIME. CALL LIGHT WITHIN REACH
--- NOTE | 2022-12-14 08:22 | NUR ---
RECORDS REQ FROM PCP
--- NOTE | 2022-12-14 08:34 | NUR ---
PATIENT AWAKE IN BED. ASSESSMENT COMPLETED. STATES FRIEND IS BRINGING NEEDLS FOR VICTOZA TODAY. STATES SHE WOULD LIKE TO EAT BREAKFAST PRIOR TO APPLICATION OF TOPICAL MEDICATIONS. SISTER REMAINS IN ROOM AT THIS TIME. CALL LIGHT IN REACH. INSTRUCTED TO CALL WITH NEEDS.
--- NOTE | 2022-12-14 09:59 | NUR ---
IN PT ROOM. VITALS AND IS AND OS COMPLETE. PT ASSISTED TO SHOWER CHAIR 2 PA STAND PIVOT. PT SHOWER COMPLETE. PT HAD BM PRIOR TO STANDING UP SO COMPLETE LINEN CHANGE AND ROOM CLEAN COMPLETE. PT ASSISTED TO CHAIR 2 PA STAND PIVOT. PT REFUSED WARM BLANKET. FRESH ICE WATER PROVIDED. NO FURTHER NEEDS. CALL LIGHT WITHIN REACH
--- NOTE | 2022-12-14 10:54 | NUR ---
PT CALL LIGHT ANSWERED. PT REQ TO USE BSC. PT ASSISTED TO BSC 2 PA STAND PIVOT. PT GIVEN CALL LIGHT AND WILL CALL WHEN COMPLETE
--- NOTE | 2022-12-14 10:57 | NUR ---
2 person assist to pivot transfer to bedside commode. Patient requests to sit for a few minutes. Call light in reach.
--- NOTE | 2022-12-14 11:04 | NUR ---
IN PT ROOM TO ASSIST PT OFF BSC/ 2 PA STAND PIVOT. PT BACK IN CHAIR. NO FURTHER NEEDS. CALL LIGHT WITHIN REACH
--- NOTE | 2022-12-14 11:13 | NUR ---
UP IN RECLINER. BACITRACIN TO OPEN AREA UNDER NOSE. ALLEVYN PLACED ON RIGHT HEEL. NO OPEN AREAS NOTED. REDNESS UNBLANCHING.
--- NOTE | 2022-12-14 12:30 | NUR ---
Pt sitting in chair, visiting with sister. Updated I sent her chart to [facility]. They will contact me when their team reviews. Sister states mom is planning on neck surgery and does not pts mom can provide care. We discussed options of IP rehab, SNF, HH, and OP. Per PT they do feel pt would be able to complete 3 hrs of rehab per day if broken into segments. I called and spoke with Shonda Geiger [phone] as Jade is on vacation. She will pass the chart on for review and call back when they have reviewed.
--- NOTE | 2022-12-14 14:29 | NUR ---
PT HAS BEEN MOVED TO M/S FLOOR. ABLE TO CARRY ON A CONVERSATON. PT THANKED ME FOR VISITING, PRAYING AND CARING. CM LINA IN TO VISIT ABOUT FURTHER TREATMENT, GAVE BLESSING AND WILL FOLLOW
--- NOTE | 2022-12-14 19:34 | NUR ---
Received bedside report from offgoing shift, hourly rounding initiated.
--- NOTE | 2022-12-14 21:31 | NUR ---
Helped patient to bedside commode with 2 person transfer. Did really well and was steady on feet. Back to bed with call light at side.
--- NOTE | 2022-12-14 21:32 | NUR ---
CALL LIGHT ANSWERED, 2 PERSON STAND BY ASSIST TO BSC WITH FWW. pt TOLERATED WELL, MINIMAL INSTRUCTION AND ASSIST BY RN. VOID IN BSC. BACK TO BED. PERSONAL SUPPLIES AND CALL LIGHT IN REACH.
--- NOTE | 2022-12-14 23:14 | NUR ---
in pt room for medication administration. Pt IV found to be non-patent, infiltrated. Pt IV pulled and will attempt to start new IV KIMMIE. Pt call light in reach, no complaint of pain or discomfort
--- NOTE | 2022-12-14 23:42 | NUR ---
New IV started in left forearm by LUIS ALBERTO Grady, flushed well, no complaint of discomfort. Pt call light in reach.
--- NOTE | 2022-12-15 02:26 | NUR ---
pt UP TO BSC 1PA WITH FWW FOR VOID. BACK TO BED. THIS RN NOTES SWELLING ABOVE IV SITE. SL AT THIS TIME. CONSUMER INSIGHTS INTERN RN IN ROOM. IV SITE FLUSHES WNL, DRAWS BACK BLOOD, TENDER PER pt WITH FLUSHING. ATTEMPTS AT NEW PERIPHERAL IV, CONSUMER INSIGHTS INTERN RN PLACES IV IN LEFT HAND. pt INSTRUCTED TO NOTIFY FOR ANY REDNESS, SWELLING, PAIN. IV ANTIBIOTIC NOW INFUSING ORDERED. PRIMARY RN NOTIFIED. CBG 100. DIET SPRITE AND ICE WATER PROVIDED. CALL LIGHT IN REACH. BED RAILS UP PER pt REQUEST.
--- NOTE | 2022-12-15 04:16 | NUR ---
In pt room for rounding. Pt resting on back, eyes closed, breathing even and unlabored. Pt right leg elevated on pillow for comfort, call light in reach.
--- NOTE | 2022-12-15 05:34 | NUR ---
PT LAYING IN BED RESTING. IN TODO I &O AND VS. PT STATES DOES NOT NEED TO USE REST ROOM. CALL LIGHT WITHIN REACH
--- NOTE | 2022-12-15 06:46 | NUR ---
PHONE CALL TO MD UPDATE ON MULTIPLE IV ATTEMPTS. MD TO ROUND ON pt TO CONSIDER PICC LINE PLACEMENT VERSUS MIDLINE.
--- NOTE | 2022-12-15 06:51 | NUR ---
Inpt room for medication administration. Pt sitting up in chair, family at bedside, no complaint of pain. Pt compliant with medication, IV flushing appropriately, IV abx hung. Pt call light in reach. modern languages professor contacted Dr. Cai concerning possibility of a PICC or midline placement due to pt IV's regularly infiltrating. Dr. Cai stated he would round on the pt this morning and make a determination.
--- NOTE | 2022-12-15 07:18 | NUR ---
Updated PT/ST and Progress nost faxed to [facility].
--- NOTE | 2022-12-15 09:00 | NUR ---
REPORT RECEIVED FROM NIGHT RN AND PT CARE RESUMED. PT. IS ALERT AND ORIENTED TO ALL BUT DATE. SHE REPORTS MILD, TOLERABLE MOUTH PAIN FROM OPEN SORE. HEEL DRESSING INTACT AND HEEL PROTECTOR IN PLACE. ASSESSMENT COMPLETED. MEDS ADMIN. DISCUSSED POC AND MEDS. LEFT RESTING WITH CALL LIGHT IN REACH.
--- NOTE | 2022-12-15 11:00 | NUR ---
PT C/O PAIN ABOVE UPPER LIP WHERE THERE IS A SCAB. GIVEN OINTMENT AND APPLIED. BROUGHT MILK. LEFT RESTING WITH SISTER AT BEDSIDE.
--- NOTE | 2022-12-15 12:58 | NUR ---
Called and spoke with Natalia. She is unsure if they received the updated notes this AM. She states the notes the read showed the pt as requiring a amy. She asks I refax progress, OT/PT notes and to use [phone]. Notes refaxed.
--- NOTE | 2022-12-15 14:16 | NUR ---
M/S STAF IN ATTENDING TO PT. HAD BRIEF VISIT-PLEASANT AND CAN SEE THAT PT IS SHOWING SIGNS OF COGNITIVE IMPROVEMENT. GAVE BLESSING AND WILL FOLLOW.
--- NOTE | 2022-12-15 15:00 | NUR ---
PT. HAD AN INCONTINENT VOID IN BED. ASSISTED TO BATHROOM. BEDDING CHANGED AND PT. ASSISTED WITH SHOWER BY BUFFING TURNER AND COUNTER.
--- NOTE | 2022-12-15 15:30 | NUR ---
RIGHT HEEL DRESSING CAME OFF IN SHOWER. ASSESSED AND ALLEVYN REPLACED. BLISTER INTACT AND PERIWOUND BLANCHABLE. WILL CONTINUE TO MONITOR.
--- NOTE | 2022-12-15 16:50 | NUR ---
Called and spoke with Natalia from [facility] rehab. She received by fax and is sending request for insurance auth now. She has not received a response from their Dr. She asks I call after 9:30 tomorrow.
--- NOTE | 2022-12-15 20:12 | NUR ---
MOTHER BRANDT ADHIKARI CALLED AND ASKED FOR A pt UPDATE, UPDATE PROVIDED AND QUESTIONS ANSWERED. POC FOR EVENING DISCUSSED.
--- NOTE | 2022-12-15 21:09 | NUR ---
Picked up room and removed trash. Positioned fan on patient. Refilled water. Call light within reach.
--- NOTE | 2022-12-16 00:20 | NUR ---
Patient went to bathroom, one person assist, front wheel walker. Patient voided before sitting down on toilet. Changed out gown and skid socks. Fresh ice water. Call light within reach.
--- NOTE | 2022-12-16 01:54 | NUR ---
PT LYING IN BED RESTING QUIETLY. RESP EVEN ET UNLABORED. ABLE TO MAKE NEEDS KNOWN. PT REQUIRES WALKER AND X1 ASSIST TO BATHROOM. PT REMAINS UNSTEADY WHEN AMBULATING. PT HAD BM X 1 REMAINS LOOSE. PT HAS NO COMPLAINTS OF PAIN OR DISTRESS AT THIS TIME.
--- NOTE | 2022-12-16 08:45 | NUR ---
REPORT RECEIVED FROMNIGHT RN AND PT. CARE RESUMED. PT. IS ALERT AND ORIENTED TO ALL.ASSESSMENT COMPLETED. RT. LESTER GARCIA REPLACED. PT. AMBULATED TO BED FROM CHAIR WITH FWW. SHE DID NOT LIKE HER BREAKFAST AND BROUGHT A PROTEIN DRINK. PT. LEFT RESTING WITH CALL LIGHT IN REACH.
--- NOTE | 2022-12-16 10:00 | NUR ---
PT. BLOOD GLUCOSE CHECKED AND INCREASED TO 142. WEB PRODUCTION ASSISTANT. PT. REPORTS DIZZINESS HAS RESOLVED. LEFT RESTING WITH CALL LIGHT IN REACH.
--- NOTE | 2022-12-16 11:00 | NUR ---
Spoke with Nilo and mor I am waiting to hear from Natalia At the IP rehab to see if she has been accepted.
--- NOTE | 2022-12-16 11:23 | NUR ---
THIS MORNING LITTLE BIT AFTER SHIFT CHANGE. PATIENT CALLED. WHEN I GOT IN THERE TO TAKE HER TO THE BATHROOM SHE SAID SHE ALREADY WENT. SO GOT HER UP TO HER CHAIR CHANGED HER GOWN. GOT HER ATTEND ON. SHE CLEANED HER FRONT AND I CLEANED HER BACK SIDE.
--- NOTE | 2022-12-16 12:32 | NUR ---
PT ALERT, ORIENTED AND MENTIONED SHE WASN'T FEELING TOO GOOD TODAY. TRIED TO EAT AM MEAL-JUST WASN'T INTERESTED. LUNCH IS COMING, GOING TO TRY. REQUESTED PRAYER FOR HER YOUNGEST-HOME SICK WITH ROBERTH. GAVE BLESSING AND WILL FOLLOW
--- NOTE | 2022-12-16 13:58 | NUR ---
PT. ASSESSMENT COMPLETED. PT. C/O OF INTERMITTENT N/T IN RIGHT HAND THAT STARTED YESTERDAY. PULSE STRONG, CMS INTACT WHEN ASSESSED IN THIS LIMB. SHE DENIES NAUSEA AND PT. LEFT RESTING WITH CALL LIGHT IN REACH.
--- NOTE | 2022-12-16 14:00 | NUR ---
Attempted to call Natalia and unable to reach. Message left asking her to call and let me know one way or the other if they will accept this pt.
--- NOTE | 2022-12-16 15:00 | NUR ---
In and spoke with pt and updated I have not heard from Natalia. She states she received a call she has been accepted. She is unsure who called. Returned to my office and called Natalia and she states she did not make this call. I will fu with pt. REturned to room and pt called the number from her cell phone. She reached Sachi from [facility], she states she has been leaving messages for the IP rehab, but has not been able to reach anyone. Pt has been authed for 7 nights. Ref #[id number]. I called Natalia and she states pt is accepted and may admit on Monday at 1030. I will fax orders, Covid test, and updated notes Monday morning. I will call [facility] transportation and schedule a wc van as pt does not think she can get in and out of a car. Dr Osborne updated.
--- NOTE | 2022-12-16 15:27 | NUR ---
ORDERED PATIENT'S DINNER BEFORE 1530. TODAY. PATIENT'S BEEN UP TO HER CHAIR FOR MEALS. SHE DID EAT ALL OF HER MACRONI AND CHEESE FOR LUNCH. DID HER BLOOD SUGAR CHECKS FOR BREAKFAST AND LUNCH.
--- NOTE | 2022-12-16 15:30 | NUR ---
PT. C/O N/T NEEDLE SENSATION IN RIGHT HANDS. MD UPDATED AND WILL ASSESS.
[2022-12-16] MEDS ORDERED: NYSTATIN100000 UN1 PO (16:05)
[2022-12-16] MEDS ORDERED: GABAPENTIN300 MG PO (16:06)
--- NOTE | 2022-12-16 16:06 | NUR ---
REceived fax from [facility] for [facility] with written auth. Called Natalia and asked if she received the written auth. She did not. Faxed written auth to her [phone] fax. Cont. to attempt to call [facility] transport, it times out and asks to leave a message.
[2022-12-16] MEDS ORDERED: ORAL ANALGESIC9 GM MM (16:07)
[2022-12-16] MEDS ORDERED: INSULIN GL100 UNIT/1 SUB-Q (16:07)
[2022-12-16] MEDS ORDERED: CLOTRIMAZOLE45 G1 TOP (16:08)
--- NOTE | 2022-12-16 17:00 | NUR ---
Attempted to contact [facility] for greater than 1.5 hours. Unable to contact and was repeatedly call ended after holding for 15 minutes each time. I left messages stating pt needs transport at 0945 on Monday to [facility] rehab from [facility] in [place]. Gave her [facility] id number and asked for return call. I did not recieve a return call. Nilo also began calling to attempt to schedule a wc transport. I will call again on Monday when I return.
--- NOTE | 2022-12-17 01:30 | NUR ---
PT LYING IN BED RESTING QUIETLY. RESP EVEN ET UNLABORED ABLE TO MAKE NEEDS KNOWN. PT HAS COME TO TERMS WITH HAVING TO GO TO [facility] FOR REHAB WAS UPSET EARLIER ABOUT HAVING TO BE SO FAR AWAY FROM HER KIDS. PT USES WALKER TO AMBULATE WITH 1 PERSON ASSIST. PT STATES NUMBNESS AND TINGLING REMAINS IN LEFT HAND. PT HAS NO C/O OF PAIN OR DISTRESS AT THIS TIME.
--- NOTE | 2022-12-17 08:55 | NUR ---
WHEN I WENT IN TO PATIENT ROOM TO DO HER BLOOD SUGAR CHECK PATIENT SAID SHE NEEDED TO USE THE BATHROOM. AFTER SHE WAS DONE SHE SET UP IN HER CHAIR. DID HER BLOOD SUGAR CHECK. PATIENT ATE HER BREAKFAST UP IN HER CHAIR.
--- NOTE | 2022-12-17 08:58 | NUR ---
WENT BACK IN TO BRING HER TWO CUPS OF ICE. POUR THEM IN HER CUP AND PUT HER WATER IN. SHE DRANK ALL THAT. AND I PUT THE REST IN. ALSO FIXED HER PILLOWS TO TRY TO MAKE HER COMFORTABLE.
--- NOTE | 2022-12-17 09:00 | NUR ---
REPORT RECEIVED FROM NIGHT RN AND PT. CARE RESUMED. PT. IS ALERT AND ORIENTED TO ALL. SHE C/O R. HIP PAIN THAT IS CHRONIC AND AMBULATED FROM CHAIR TO BED WITH SBA AND FWW. REPORTS PAIN IMPROVED WITH LYING ON LEFT SIDE. ASSESSMENT COMPLETED. ALLEVYN INTACT ON R. HEEL. PT. REFUSES DESENEX AND LOTRIMINE UNDER PANNUS AND STATES AREA HAS IMPROVED. AREA CLEANSED AND DRIED. SKIN INTACT AND NO REDDNESS. MEDS ADMIN. SHE DENIES NAUSEA OR DIZZINESS. LEFT RESTING WITH CALL LIGHT IN REACH.
--- NOTE | 2022-12-17 10:30 | NUR ---
PATIENT TOOK A SHOWER. WASHED HER HAIR. SHE BRUSHED HER OWN TEETH. WASHED HER FACE AND SOME OF HER BODY. AND I HELPED WITH THE REST. PATIENT WAS SITTING UP IN HER CHAIR FOR BREAKFAST AND LUNCH. PATIENT IS LAYING DOWN AND SLEEPING.
--- NOTE | 2022-12-17 11:11 | NUR ---
ROUNDING ON PT. SHE IS IN THE SHOWER WITH BRADLEY. BROUGHT COMB.
--- NOTE | 2022-12-17 15:52 | NUR ---
ROUNDING ON PT. SHE IS RESTING ON LEFT SIDE WITH EYES CLOSED. NO SIGNS OF DISTRESS.
--- NOTE | 2022-12-17 17:00 | NUR ---
PT ASSISTED TO BATHROOM WITH FWW AND SBA. SHE HAD A LARGE FORMED WHITE BM. SHE DENIES PAIN. MD RILEYDATED ON ABNORMAL COLOR. WILL CONTINUE TO MONITOR.
--- NOTE | 2022-12-17 18:20 | NUR ---
PATIENT TOOK A SHOWER ON Monday. SHE GOT HER HAIR WASHED BY HER SISTER.
--- NOTE | 2022-12-17 21:23 | NUR ---
IN ROOM TO ROUND CHARGE, pt AWAKE AND RESTING IN CHAIR. PRIMARY RN IN ROOM AND ATTENDING TO pt NEEDS. NO NEEDS OR CONCERNS VERBALIZED FROM pt TO THIS RN. NO DISTRESS NOTED, pt APPEARS COMFORTABLE AND RELAXED.
--- NOTE | 2022-12-18 02:21 | NUR ---
PT LYING IN BED RESTING QUIETLY. RESP EVEN ET UNLABORED ABLE TO MAKE NEEDS KNOWN. PT MOOD IMPROVED FROM DAY SHIFT AFTER SISTER DIDN'T VISIT TO FIX HAIR DID PT HAIR FOR HER. PT STATES READY TO GO FOR REHAB SO SHE CAN RETURN HOME TO HER KIDS. PT USES WALKER AND 1X ASSIST WHEN AMBULATING. PT STATES LEFT HAND IS IMPROVING NO PAIN OR DISTRESS NOTED AT THIS TIME.
--- NOTE | 2022-12-18 07:30 | NUR ---
REPORT RECEIVED FROM LUIS ALBERTO SERRATO. PT RESTING IN BED ON LEFT SIDE WITH EYES CLOSED. RESPIRATIONS EVEN AND UNLABORED. BED RAILS UP. CALL LIGHT WITHIN REACH. PT ALLOWED TO REST.
--- NOTE | 2022-12-18 08:04 | NUR ---
PT RESTING IN BED. CURTAINS OPENED, WHITE BOARD UPDATED, PT UP TO RESTROOM AND BACK TO BED, FRESH ICE AND ICE WATER GIVEN. PT BACK IN BED. CALL LIGHT IN REACH. NO FURTHER NEEDS AT THIS TIME
--- NOTE | 2022-12-18 09:01 | NUR ---
MORNING ASSESSMENT AND MEDICATION DUE. PT RESTINGIN BED. PHYSICAL THERAPY AT BEDSIDE. PT DECLINES PHYSICAL THERAPY STATING SHE FEELS DIZZY AND NAUSEATED. NOTED THAT PTS BLOOD SUGAR WAS 85 THIS MORNING. PT STATES SHE IS NOT ABLE TO EAT DUE TO NASUEA. PT TAKES A FEW SIPS OF ORANGE JUICE. BLOOD SUGAR REASSESSED AND FOUND TO BE 94. PT REPORTS SHE FEELS NASUEA AND DIZZINESS MAY BE RELATED TO NEED TO HAVE A BOWEL MOVEMENT. 1 PERSON ASSIST WITH FWW UP TO RESTROOM. PT HAS LARGE SOFT BOWEL MOVEMENT. STOOL COLOR A MIX OF WHITE, YELLOW AND ARANA. MD AWARE OF STOOL COLOR. LABS PENDING. AFTER BOWEL MOVEMENT PT STATES SHE FEELS "MUCH BETTER" AND THAT NAUSEA HAS RESOLVED. PT UP TO CHAIR. PT REPORTS 8/10 PAIN IN RIGHT HIP "BUT THATS ALWAYS THAT WAY." SEE MAR FOR MEDICAITON GIVEN. PT ALERT AND ORIENTD TO ALL. PT CONTINUES TO REPORTS NUMBNESS TO RIGHT FINGERS BUT ALSO STATES "DON'T POKE THOSE (RIGHT) FINGERS BECAUSE THEY ARE TOTALLY NUMB AND REALLY HURT WHEN YOU POKE THEM." LEFT WRIST CONTINUES TO BE FLOPPY AND DROP WITHOUT BRACE IN PLACE. PT IS ABLE TO PUSH FINGERS OF LEFT HAND DOWN AGAINST RESISTANCE (MINMALLY). LEFT FINGERS DO OFFICE RECEPTIONIST, WEAKNESS NOTED. RIGHT OFFICE RECEPTIONIST STRENGTH WNL. PT REPORTS HER FINGER NAILS ARE "A LITTLE YELLOW." LUNG SOUNDS CLEAR. PT DENIES COUGH AT THIS TIME, NO COUGH NOTED. EDEMA TO ARMS AND LEGS UNCHANGED. PT ASSISTED WITH CALLING IN LUNCH ORDER. NO ADDITONAL REQUESTS OR COMPLAINTS. CALL LIGHT WITHIN REACH.
--- NOTE | 2022-12-18 10:12 | NUR ---
THIS RN TO ROOM TO CHECK ON PT. PT REPORTS SHE JUST FINISHED WORKING WITH PHYSICAL THERAPY. PT REPORTS 06/22 PAIN REMAINS IN RIGHT HIP "BECUASE I JUST FINISHED WITH PORSCHE." PT REMAINS UP TO CHAIR. PT DENIES ADDITIONAL REQUESTS OR COMPLAINTS. CALL LIGHT WITHIN REACH.
--- NOTE | 2022-12-18 10:49 | NUR ---
THIS POLITICAL SCIENCE INSTRUCTOR TOOK PT ON A WHEELCHAIR RIDE AROUND THE HOSPITAL. PT NOW BACK IN ROOM IN BED WITH CALL LIGHT IN REACH WATCHING TV. NO FURTHER NEEDS AT THIS TIME.
--- NOTE | 2022-12-18 12:05 | NUR ---
THIS RN TO ROOM TO CHECK ON PT. NO INSULIN NEEDED WITH LUNCH. PT REPORTS "TODAY WITH PHYSICAL THERAPY I LIFTED ALL MY (LEFT) FINGERS." PT VERY PROUD OF HER PROGRESS. PT ASSISTED WITH MEAL TRAY PREP. PT DENIES ADDITIONAL REQUESTS OR COMPLAINTS. CALL LIGHT WITHIN REACH. BED RAILS UP.
--- NOTE | 2022-12-18 14:28 | NUR ---
AFTERNOON ASSESSMENT AND MEDICATION DUE. PT RESTING IN BED. PT BOOSTS SELF TO THE TOP OF BED. PT DECLIENS TIME UP TO CHAIR AT THIS TIME. PT REPORTS RIGHT HIP PAIN IS WELL CONTROLLED AT THIS TIME, CURRENTLY 02/20. PT DENIES NASUEA. PT ALERT AND OREINTED TO ALL. PT REPROTS ONGOING NUMBNESS TO RIGHT FINGERS AND NOW REPORTS NUMBNESS AND TINGLING TO LEFT TOES. EDEMA TO LEGS AND HANDS UNCHANGED. LEFT WRIST DROP UNCHANGED. JAUNICE TO FINGER NAILS AND SKIN UNCHANGED. PT REPORTS POOR APPITITE TODAY, NOTED TO BE EATING SNACKS FROM HOME. PT VISITING WITH FAMILY AT BEDSIDE. DENIES ADDITIONAL REQUESTS OR COMPLAINTS. CALL LIGHT WITHIN REACH. BED RAILS UP.
--- NOTE | 2022-12-18 15:50 | NUR ---
THIS RN TO ROOM TO CHECK ON PT. PT WATCHING TV WITH FAMILY. PT REPORTS PAIN IS WELL CONTROLLED AND DENIES REQUESTS OR COMPLAINTS. ICE WATER REFILLED. CALL LIGHT WIHTIN REACH. BED RAILS UP.
--- NOTE | 2022-12-18 16:11 | NUR ---
PT CALL LIGHT ON. PT REQUESTS ASSISTANCE UP TO RESTROOM. PT VOIDS 300ML CLEAR YELLOW URINE AND HAS LOOSE YELLOW BOWEL MOVEMENT. ÁLVARO CARE DONE. DEPENDS CHANGED. STAND BY ASSIST WITH FWW UP TO CHAIR. PT DENIES ADDITIONAL REQUESTS OR COMPLAINTS. CALL LIGHT WITHIN REACH.
--- NOTE | 2022-12-18 16:40 | NUR ---
PT HERE FOR DKA, PANCREATITS AND METABOLIC ENCEPHALOPATHY, NOW AWAITNG PLACEMENT FOR REHAB. PT UP WITH STAND BY ASSIST AND FWW TO CHAIR AND WITH PHYSICAL THERAPY THIS SHIFT. PT TOELRATING 60G CARB DIET WITH MINIMAL APPITITE. BLOOD SUGAR CHECKS WITH MEALS, SLIDING SCALE INSULIN. PT CONTINUES TO REPORT NUMBNESS TO RIGH THAND AND LEFT TOES. LEFT WRIST DROP UNCHANGED. PT REPORTS "YELLOW" FINGER NAILS THIS SHIFT, MONITORING LIVER LABS. STOOLS CONTINUE TO BE WHITE TO LIGHT YELLOW IN COLOR. BILSTER TO RIGHT HEEL UNCHNAGED. PT ALERT AND OREINTED THROUGHOUT SHIFT. PRN TYELNOL GIVEN FOR RIGHT HIP PAIN. PT VOIDING QUANITTY SUFFICIENT. NEEDS ASSISTANCE AT TIMES WITH ADL CARES. PT USES CALL LIGHT AND MAKES NEEDS KNOWN.
--- NOTE | 2022-12-18 17:08 | NUR ---
DINNER DELIVERED TO PT. PT REMAINS UP TO CHAIR. PT REPORTS PAIN REMAINS WELL CONTROLLED. BLOOD SUGAR WITHIN RANGE AND NO INSLUIN NEEDED. NOTED THAT PTS BLOOD SUGARS HAVE BEEN LOWER TODAY AND PT HAS MINIMAL APPITITE. DR. MOORE CALLED REGARDING GLARGINE DOSE. DR MOORE STATES TO HOLD EVENING DOSE OF GLARGINEAT THIS TIME AND CALL HIM WITH BLOOD SUGAR TAKEN AT 2100. ORDERS ENTERED, REPEAT BACK PERFORMED. PT TALKING WITH MOTHER ON THE PHONE WHILE EATING. NO ADDITONAL REQUEST OR COMPLAINTS. CALL NEO NAJERA.
--- NOTE | 2022-12-18 18:26 | NUR ---
THIS RN TO ROOM TO CHECK ON PT. PT RESTING IN BED, WATCHING TV. PT DENIES PAIN AND NAUSEA. ICE WATER REFILLED. CALL LIGHT WIHTIN REACH. PT DENIES ADDITIONAL REQUESTS OR COMPLAINTS. BED RAILS UP.
--- NOTE | 2022-12-18 18:52 | NUR ---
PT CALL LIGHT ON. PT REQUESTS ASSISTANCE UP TO RESTROOM. STAND BY ASSIST WITH FWW UP TO RESTROOM. PT VOIDS 250ML CLEAR YELLOW URINE AND PERFORMS SELF ÁLVARO CARE. PT NEEDS ASSISTANCE WITH PULLING UP UNDERWARE. STAND BY ASSIST WITH FWW BACK TO BED. PT POSITIONS SELF IN BED. BED RAILS UP. CALL LIGHT WITHIN REACH. PT DENIES ADDITIONAL REQUESTS OR COMPLAINTS.
--- NOTE | 2022-12-18 20:56 | NUR ---
NOTIFIED MD OF PT BLOOD SUGAR OF 112 STATED TO CONTINUE TO HOLD INSULIN.
--- NOTE | 2022-12-18 23:20 | NUR ---
ANSWERED CALL LIGHT. 1 PA TO BATHROOM USING WALKER AND BACK TO BED. SMALL FAN CHANGED THE BATTERY. NO OTHER NEEDS AT THIS TIME.
--- NOTE | 2022-12-19 01:47 | NUR ---
PT LYING IN BED RESTING QUIETLY. RESP EVEN ET UNLABORED ABLE TO MAKE NEEDS KNOWN. PT EMOTIONAL AND CRYING AT BEGINNING OF SHIFT CONCERNED ABOUT HER KIDS GOING INTO [facility] WHILE IN REHAB STATES CPS DOESN'T THINK SHE CAN TAKE CARE OF THEM PROPERLY. SAT IN ROOM WITH PT AND TALKED ABOUT POSSIBLE SOLUTIONS AND TO SPEAK WITH CM FIRST THING IN THE MORNING. PT HAS CALMED DOWN AND RESTING IN BED. PT REQUIRES WALKER WITH 1X ASSIST WHEN AMBULATING AND IS AWARE TO USE CALL LIGHT BEFORE ATTEMPTING TO AMBULATE. PT HAD BM AND IT WAS YELLOW NOT WHITE PREVIOUSLY REPORTED. NO ACUTE DISTRESS OR PAIN AT THIS TIME.
--- NOTE | 2022-12-19 04:18 | NUR ---
CALL LIGHT ANSWERED. 1 SBA TO BATHROOM AND BACK TO BED. ICE WATER REFILLED. NO OTHER NEEDS AT THIS TIME.
--- NOTE | 2022-12-19 06:08 | NUR ---
PT BLOOD SUGAR THIS A.M. WAS 122
--- NOTE | 2022-12-19 07:03 | NUR ---
REPORT RECEIVED FROM LUIS ALBERTO GONZALES. PT UP TO CHAIR VISITING WITH FAMILY. PT DENIES PAIN AND NAUSEA. PT ASSISTED WITH REAPPLYING BRACE TO LEFT WRIST. ICE WATER REFILLED. NO ADDITIONAL REQUESTS OR COMPLAINTS. CALL LIGHT WITHIN REACH.
--- NOTE | 2022-12-19 07:37 | NUR ---
MORNING ASSESSMENT AND MEDICATION DUE. PT BACK TO BED, REPORTS SHE GOT BACK TO BED WITH BRADLEY COMER, BECAUSE "THE CHAIR MAKES MY HIP HURT." PT REPORTS 4/10 PAIN IN RIGHT HIP NOW THAT SHE IS BACK IN BED AND STATES "IT'S FINE RIGHT NOW." PT TRANSFERES WITH STAND BY ASSIST AND FWW. BMAT LEVEL 3 PT DENIES NEED FOR PAIN MEDICATION AT THIS TIEM. COVID SWAB COLLECTED BY RT POOJA, FOR ANTICIPATED TRANSFER. PT ALERT AND OREINTED TO ALL. STRONG AFFILIATE MARKETING SPECIALIST STRENGTH NOTED TO BILATEARL HANDS. PT CONTINUES TO REPORT NUBMNESS TO RIGHT FINGERS AND LEFT TOES. WRIST DROP CONTINUES TO LEFT WRIST, PT ABLE TO MOVE FINGERS AND AFFILIATE MARKETING SPECIALIST, BRACE IN PLACE. LUNG SOUNDS CLEAR. HEART TONES REGULAR. EDEMA REMAINS TO BILATERAL HANDS AT +2 AND LEGS AT +1. MINMAL EDEMA NOTED TO FACE AT THIS TIME, PT REPORTS EDEMA IS IMPROVING. ABDOMEN SOFT AND NON TENDER. PT REPORTS HER STOOLS CONTINUED TO BE WHITE THROUGH THE NIGHT. PT DENIES NASUEA. BILSTER TO RIGHT HEEL REMAINS INTACT. REDNESS UNDER PANNUS AND BREASTS IMPROVING. PT DECLINES MICONAZOLE POWDER. NO ADDITIONAL REQUESTS OR COMPLAINTS AT THIS TIME. CALL LIGHT WIHTIN REACH. BED RAILS UP. SISTER AT BEDSIDE.
--- NOTE | 2022-12-19 09:15 | NUR ---
[facility], TRANSPORTATION ARRANGED FOR 10 AM AND COMPANY TO PROVIDE WC. STAFF UPDATED.
--- NOTE | 2022-12-19 09:22 | NUR ---
Several phone calls to [facility] this am. Notifed recently pt will transport at 10:00 to [facility] per [facility] van. They will bring their wc. Sister is now asking if she can ride with pt. Let her know, I will call and ask [facility] if this is possible. Sister states her mom will be in [place] this afternoon for an appointment and will bring her home.
--- NOTE | 2022-12-19 10:17 | NUR ---
THIS RN TO ROOM TO CHECK ON PT. PT DRESSED AND PACKED WITH ONE PERSON ASSIST FOR DISCHARGE. DISCHARGE INSTRUCTIONS REVEIWED WITH PT AND PTS SISTER. PT AND SISTER VERBALIZE UNDERSTANDING OF INSTRUCTIONS, MEDICATIONS, AND FOLLOW UP. PT STATES HER QUESTIONS HAVE BEEN ANSWERED. PT REQUESTS LOTION BE APPLIED TO FEET PRIOR TO DISCHARGE, APPLIED, FRESH SOCKS PROVIDED. NO ADDITIONAL REQUESTS OR COMPLAINTS. AWAITING ARRIVAL OF [facility] FOR TRANSPORT.
--- NOTE | 2022-12-19 10:24 | NUR ---
[facility] AIRRIVED TO TRANSFER PT TO REHAB FACILITY. PT TRANSFERS SELF TO WHEELCHAIR WITH STAND BY ASSIST AND FWW. PT REPORTS ALL HER QUESTIONS AHVE BEEN ANSWERE. NO ADDITIONAL REQUESTS OR CONCERNS.
--- NOTE | 2022-12-19 10:28 | NUR ---
REPORT CALLED TO LUIS ALBERTO BISHOP AT [facility] REHAB DEPARTMENT. QUESTIONS ASKED AND ANSWERED.
--- NOTE | 2022-12-19 10:42 | NUR ---
Called and updated Jade at [facility] rehab, transport was 30 minutes late, but left around 10;30. Original orders and covid test are in the transport envelope. She did not recieved the Progress notes and PT/OT notes I faxed this morning. Let her know, I faxed them to Nataliajenna kwon and I will fax to her. She denies other needs. DoC to Doc and nurse to nurse number received report and given to charge nurse and Dr. Osborne.
== END 2022-12-19 10:24 | DRG 637 ==
LOC: ED 20:28 → MS 23:26 → CCU 23:26 → MS 12-13 17:21
PROVIDERS: ADMIT Internal Medicine; ATTEND Family Medicine
PROC: 0BH17EZ Insertion of Endotracheal Airway into Trachea, Via Natural or Artificial Opening (ICD-10-PCS; principal; 2022-12-06)
PROC: 02HV33Z Insertion of Infusion Device into Superior Vena Cava, Percutaneous Approach (ICD-10-PCS; 2022-12-06)
PROC: 3E033XZ Introduction of Vasopressor into Peripheral Vein, Percutaneous Approach (ICD-10-PCS; 2022-12-07)
DX: E11.10 Type 2 diabetes mellitus with ketoacidosis without coma (principal); G93.41 Metabolic encephalopathy; J18.9 Pneumonia, unspecified organism; J96.01 Acute respiratory failure with hypoxia; K85.00 Idiopathic acute pancreatitis without necrosis or infection; N17.9 Acute kidney failure, unspecified; E87.1 Hypo-osmolality and hyponatremia; Z20.822 Contact with and (suspected) exposure to COVID-19; E86.0 Dehydration; E87.6 Hypokalemia; I10 Essential (primary) hypertension; K21.9 Gastro-esophageal reflux disease without esophagitis; R20.2 Paresthesia of skin; F17.200 Nicotine dependence, unspecified, uncomplicated; Z96.641 Presence of right artificial hip joint; Z98.890 Other specified postprocedural states; Z88.0 Allergy status to penicillin; Z88.1 Allergy status to other antibiotic agents; Z79.4 Long term (current) use of insulin; Z79.899 Other long term (current) drug therapy
CPT/HCPCS: 31500; 36415; 36600; 70450; 71045; 74176; 80048; 80053; 80074; 80076; 80202; 81001; 82010; 82803; 83036; 83605; 83690; 83735; 84100; 84478; 84703; 85007; 85025; 85060; 85610; 85730; 86140; 86850; 86900; 86901; 87040; 87070; 87077; 87088; 87205; 87210; 87491; 87502; 92526; 92610; 93005; 93010; 94002; 94003; 94640; 94799; 97110; 97116; 97140; 97163; 97167; 97530; 97535; A9270; C9113; C9803; J0780; J1650; J1815; J1885; J1956; J2250; J2270; J2310; J2405; J2704; J2920; J3010; J3370; J3475; J3480; J3490; J7030; J7040; J7042; J7060; J7070; J7121; U0003

== ENCOUNTER 2025-07-09 11:04 | Inpatient (IN) | payer OTHER ==
[2025-07-09] VITALS (8 sets, daily range): BP systolic 117–135; BP diastolic 66–103
[~2025-07-09] VITALS: Ht 167.6 cm; Wt 98.4 kg
[~2025-07-09 11:04] MED LIST changes: +CLOTRIMAZOLE45 G1 TOP; +GABAPENTIN300 MG PO; +INSULIN GL100 UNIT/1 SUB-Q; +NYSTATIN100000 UN1 PO; +ORAL ANALGESIC9 GM MM
[2025-07-09] MEDS ORDERED: SODIUM CHLORIDE 0.9% 1,000 ML IV ONE (11:30)
[2025-07-09 11:44] LABS: BASOPHILS 1.0 % (0.1-1.2); EOSINOPHILS 0.5 % (0.7-5.8); LYMPHOCYTES 9.2 % (19.3-51.7); MCH 29.8 PG (25.6-32.2); MCHC 34.2 g/dL (32.2-35.5); MCV 87.2 fL (79.4-94.8); MONOCYTES 6.3 % (4.7-12.5); NEUTROPHILS 78.2 % (34.0-71.1); RBC 4.83 M/uL (3.93-5.22)
[2025-07-09 12:06] LABS: ALT (SGPT) 15.0 U/L (14-59); AST (SGOT) 10.0 U/L (15-37); GLOMERULAR FILTRATION RATE,EST 50.0 mL/min (>60); PROTEIN, TOTAL 9.3 g/dL (6.4-8.2); UREA NITROGEN 15.0 mg/dL (7-18)
[2025-07-09] MEDS ORDERED: LACTATED RINGER'S 1,000 ML IV ONE (12:30)
[2025-07-09] MEDS ORDERED: INSULIN REGULAR IN 0.9 % NACL 100 ML IV SCH (12:30)
[2025-07-09] MEDS ORDERED: ACETAMINOPHEN 325 MG TAB PO PRN (12:45)
[2025-07-09] MEDS ORDERED: DEXTROSE 5% 1,000 ML IV PRN (13:00)
[2025-07-09] MEDS ORDERED: GLUCAGON,HUMAN RECOMBINANT 1 MG/ML VIAL SUB-Q PRN (13:00)
[2025-07-09] MEDS ORDERED: IBLOOD GLUCOSE TEST STRIP 1 EA TEST XX PRN (13:00)
[2025-07-09] MEDS ORDERED: DEXTROSE 5% - NACL 0.45% 1,000 ML IV SCH (13:00)
[2025-07-09] MEDS ORDERED: DEXTROSE 50% 50 ML SYR IV PRN ×2 (13:00)
[2025-07-09] MEDS ORDERED: IBLOOD GLUCOSE TEST STRIP 1 EA TEST VI SCH (13:00)
[2025-07-09] MEDS ORDERED: Insulin Regular 100 Unit/100 Ml Bag IV SCH (13:00)
[2025-07-09 13:03] LABS: BLOOD/HGB, URINE TRACE-I (Negative); KETONE, URINE >=80 (Negative); LEUK ESTERASE, URINE NEGATIVE (negative); NITRITE, URINE NEGATIVE (negative)
[2025-07-09 13:14] LABS: BACTERIA, URINE RARE /hpf (negative); CASTS, URINE HYALINE 1+ \\lpf; CRYSTALS, URINE NONE SEEN (0-1+); EPITHELIAL CELLS, URINE SQUAMOUS 4+ /lpf (0-1+); REFLEX CULTURE, URINE No (No)
[2025-07-09 13:17] LABS: AMPHETAMINES, URINE NEGATIVE (NEGATIVE); BARBITURATES, URINE NEGATIVE (NEGATIVE); BENZODIAZEPINE, URINE NEGATIVE (NEGATIVE); CANNABINOID, URINE NEGATIVE (NEGATIVE); COCAINE, URINE NEGATIVE (NEGATIVE); ECSTASY, URINE NEGATIVE (NEGATIVE); FENTANYL, URINE NEGATIVE (NEGATIVE); METHADONE, URINE NEGATIVE (NEGATIVE); OPIATES, URINE NEGATIVE (NEGATIVE); OXYCODONE, URINE POSITIVE (NEGATIVE); PHENCYCLIDINE, URINE NEGATIVE (NEGATIVE)
[2025-07-09] MEDS ORDERED: LACTATED RINGER'S 1,000 ML IV SCH (14:15)
[2025-07-09 14:37] LABS: GLOMERULAR FILTRATION RATE,EST 58.0 mL/min (>60); UREA NITROGEN 13.0 mg/dL (7-18)
--- NOTE | 2025-07-09 16:39 | NUR ---
PATIENT ARRIVES TO CCU AT 1503 FOR DKA ON STRETCHER, ON AN INSULIN GTT AT 6 UNITS/HR. PT'S MOTHER BRANDT ARRIVES WITH HER. PATIENT VOIDS TO COMMODE BEFORE STANDING AND GETTING ONTO CCU BED. PT HAD HIP REPLACEMENT ON 07/01/25 IN [place], AND STILL HAS ORIGINAL DRESSING IN PLACE THAT IS C/D/I. ADMIT ASSESSMENT COMPLETE. PATIENT REPORTS NOT BEING COMPLIANT WITH DIABETIC MEDICATIONS AT HOME DUE TO HAVING CONCERNS THAT PEOPLE WILL SEE HER WITH NEEDLES AND THINK SHE IS "USING DRUGS AGAIN" AND REPORTS SHE USED TO BE A "METH USER" BUT DENIES ANY CURRENT USE. LR BOLUS IS FINISHING AND THEN IVF TO BE LR @ 125 ML/HR. INSULIN GTT TO CONTINUE. NEXT BMP AT 1800. PT CAN HAVE SMALL SIPS OF WATER FOR COMFORT. PT IS TACHYCARDIC IN THE 120s. WILL CONTINUE TO MONITOR.
[2025-07-09 18:19] LABS: GLOMERULAR FILTRATION RATE,EST 69.0 mL/min (>60); UREA NITROGEN 12.0 mg/dL (7-18)
--- NOTE | 2025-07-09 19:48 | NUR ---
PATIENT RESTING IN BED WITH FAMILY IN ROOM. PATIENT DENIES NEEDS AT THIS TIME. CALL LIGHT IN REACH. INSULIN DRIP INFUSING PER PROTOCOL.
--- NOTE | 2025-07-09 20:10 | NUR ---
PATIENT RESTING IN BED. BS OBTAINED AND RECORDED. PATIENT DENIES FURTHER NEEDS. CALL LIGHT IN REACH.
[2025-07-09] MEDS ORDERED: MELATONIN 3 MG TAB PO PRN (21:00)
--- NOTE | 2025-07-09 21:19 | NUR ---
PATIENT RESTING IN BED. IVs FLUSHED WNL. ASSESSMENT COMPLETE. PATIENT VERBILIZES THAT SHE WANTS FOOD, THIS RN EDUCATED PATIENT ON NPO STATUS. PATIENT FAMILY IN ROOM AT BESIDE. PATIENT DENIES FURTHER NEEDS. CALL LIGHT IN REACH. IV INSULIN INFUSING PER PROTOCOL.
--- NOTE | 2025-07-09 22:08 | NUR ---
PATIENT RESTING IN BED. SCHEDULED LABS DRAWN PER ORDER. BS OBTAINED AND RECORDED. PATIENT DENIES FURTHER NEEDS AT THIS TIME. CALL LIGHT IN REACH. PATIENT REQUESTING FOOD, THIS RN EDUCATED PATIENT ON NPO STATUS.
[2025-07-09 22:14] LABS: GLOMERULAR FILTRATION RATE,EST 89.0 mL/min (>60); UREA NITROGEN 9.0 mg/dL (7-18)
[2025-07-09] MEDS ORDERED: INSULIN GLARGINE-YFGN 100 UNIT/ML ML SUB-Q ONE (22:30)
--- NOTE | 2025-07-09 22:30 | NUR ---
REVIEWED PLAN OF CARE WITH PLAN TO GIVE LONG ACTING INSULIN; WAIT 3 HOURS AND TURN OFF THE INSULIN DRIP. START Q2H ACCU CHECKS WITH MODERATE SSI COVERAGE. PATIENT CAN ADVANCED DIET TOLERATED AND WHEN PATIENT TAKING PO; FLUIDS SWITCHED FROM D5 1/2NS TO LR.
--- NOTE | 2025-07-09 22:30 | NUR ---
MD AGUILA UPDATED ON PATIENT LABS. NEW ORDERS RECEIVED, SEE EMAR.
--- NOTE | 2025-07-09 23:06 | NUR ---
PATIENT RESTING IN BED. BS OBTAINED AND RECORDED. PATIENT DENIES FURTHER NEEDS AT THIS TIME. CALL LIGHT IN REACH.
[2025-07-10] VITALS (10 sets, daily range): BP systolic 105–153; BP diastolic 75–90
--- NOTE | 2025-07-10 00:12 | NUR ---
PATIENT RESTING IN BED. BS OBTAINED AND RECORDED. PATIENT INSULIN INFUSING PER PROTOCOL. PATIENT DENIES FURTHER NEEDS AT THIS TIME. CALL LIGHT IN REACH.
--- NOTE | 2025-07-10 01:07 | NUR ---
BS OBTAINED AND RECORDED. INSULIN INFUSING PER PROTOCOL. NO FURTHER NEEDS. PATIENT RESTING WITH EYES CLOSED, RESPIRATIONS EVEN AND UNLABORED. CALL LIGHT IN REACH.
--- NOTE | 2025-07-10 01:34 | NUR ---
INSULIN INFUSION STOPPED PER ORDER. PATIENT DENIES FURTHER NEEDS. CALL LIGHT IN REACH.
[2025-07-10] MEDS ORDERED: Insulin Regular, Human 100 UNIT/ML ML SUB-Q SCH (02:00)
[2025-07-10] MEDS ORDERED: IBLOOD GLUCOSE TEST STRIP 1 EA TEST VI SCH ×2 (02:00→21:00)
--- NOTE | 2025-07-10 02:17 | NUR ---
LR INFUSING PER ORDER. D5 1/2NS STOPPED PER ORDER. PATIENT ABLE TO TOLERATE ORAL INTAKE WITHOUT DIFFICULTY. PATIENT DENIES NAUSEA. NO FURTHER NEEDS. CALL LIGHT IN REACH.
[2025-07-10 02:30] LABS: GLOMERULAR FILTRATION RATE,EST 82.0 mL/min (>60); UREA NITROGEN 10.0 mg/dL (7-18)
--- NOTE | 2025-07-10 03:26 | NUR ---
PATIENT UP TO BSC USING 1P SBA TO VOID. PATIENT BACK TO BED. ROOM CLEANED. PATIENT REPOSITIONED IN BED. PATIENT DENIES FURTHER NEEDS AT THIS TIME. CALL LIGHT IN REACH. BED ALARM ON.
[2025-07-10 06:05] LABS: BASOPHILS 0.6 % (0.1-1.2); EOSINOPHILS 2.2 % (0.7-5.8); LYMPHOCYTES 25.9 % (19.3-51.7); MCH 29.6 PG (25.6-32.2); MCHC 35.5 g/dL (32.2-35.5); MCV 83.2 fL (79.4-94.8); MONOCYTES 9.7 % (4.7-12.5); NEUTROPHILS 60.1 % (34.0-71.1); RBC 3.82 M/uL (3.93-5.22)
--- NOTE | 2025-07-10 06:14 | NUR ---
PATIENT RESTING IN BED. BS OBTAINED AND RECORDED. SS INSULIN ADMINISTERED PER ORDER. FRESH WATER PROVIDED. PATIENT DENIES PAIN OR NAUSEA. NO FURTHER NEEDS AT THIS TIME. CALL LIGHT IN REACH. BED ALARM ON.
[2025-07-10 06:17] LABS: GLOMERULAR FILTRATION RATE,EST 85.0 mL/min (>60); UREA NITROGEN 9.0 mg/dL (7-18)
--- NOTE | 2025-07-10 07:08 | NUR ---
REPORT RECEIVED FROM LUIS ALBERTO RUDD AT THIS TIME.
--- NOTE | 2025-07-10 07:33 | NUR ---
CALL LIGHT ANSWERED. PATIENT REQUESTING TO SIT IN CHAIR. PATIENT UP TO CHAIR USING 1P SBA. PATIENT BRII WELL. CHAIR ALARM IN PLACE. PATIENT HAS NO FURTHER NEEDS. CALL LIGHT IN REACH.
--- NOTE | 2025-07-10 07:35 | NUR ---
PATIENT IS SITTING IN THE CHAIR WITH BILATERAL LOWER EXTREMITIES ELEVATED. PATIENT WITH EYES OPEN AND RESPIRATIONS ARE EVEN AND UNLABORED. PATIENT MOTHER IS SITTING ON THE COUCH. PATIENT STATED NO FURTHER NEEDS. CALL LIGHT AND PERSONAL BELONGINGS ARE WITHIN REACH.
[2025-07-10] MEDS ORDERED: INSULIN GLARGINE-YFGN 100 UNIT/ML ML SUB-Q SCH (08:00)
--- NOTE | 2025-07-10 08:15 | NUR ---
0800 MEDICATIONS ADMINISTERED PER THE EMAR. VITAL SIGNS TAKEN AND DOCUMENTED IN THE CHART. FULL ASSESSMENT COMPLETE AND DOCUMENTED IN THE CHART. PATIENT IS ALERT AND ORIENTED TO SELF AND PLACE ONLY. THIS RN AND FAMILY RE-ORIENTED THE PATIENT. PATIENT EXPRESSED UNDERSTANDING. IV IN THE RAC WITH LR INFUSING AT 125 ML/HR. PATIENT WITH NO COMPLAINTS OF PAIN, SOB, NAUSEA, OR NUMBNESS AND TINGLING. PATIENT STATED NO FURTHER NEEDS AT THIS TIME. PATIENT IS SITTING IN THE CHAIR WITH BREAKFAST TRAY SET UP IN FRONT OF HER. CALL LIGHT AND PERSONAL BELONGINGS ARE WITHIN REACH.
[2025-07-10] MEDS ORDERED: PROMETHAZINE HC25 M1 PO (08:25)
[2025-07-10] MEDS ORDERED: TRULICITY1.5 MG/0.5 SUB-Q (08:26)
[2025-07-10] MEDS ORDERED: OXYCODONE HCL5 M3 PO (08:27)
[2025-07-10] MEDS ORDERED: DOCUSATE SODIU250 MG PO (08:27)
[2025-07-10] MEDS ORDERED: METOPROLOL SUCC25 MG PO (08:28)
[2025-07-10] MEDS ORDERED: GABAPENTIN800 MG PO (08:28)
[2025-07-10] MEDS ORDERED: ROPINIROLE HCL1 MG PO (08:29)
[2025-07-10] MEDS ORDERED: VITAMIN D21250 MCG PO (08:30)
[2025-07-10] MEDS ORDERED: ARIPIPRAZOLE2 MG PO (08:30)
[2025-07-10] MEDS ORDERED: SPIRONOLACTONE50 MG PO (08:52)
[2025-07-10] MEDS ORDERED: OXYBUTYNIN CHLOR5 M1 PO (08:52)
[2025-07-10] MEDS ORDERED: BUPROPION XL150 MG PO (08:53)
[2025-07-10] MEDS ORDERED: DULOXETINE HCL60 MG PO (08:54)
[2025-07-10] MEDS ORDERED: INSULIN LI100 UNIT/4 SUB-Q (08:55)
[2025-07-10] MEDS ORDERED: ROPINIROLE HCL 1 MG TAB PO SCH (09:00)
[2025-07-10] MEDS ORDERED: PANTOPRAZOLE SODIUM 40 MG TABEC PO SCH (09:00)
[2025-07-10] MEDS ORDERED: MAGNESIUM OXIDE 400 MG TABLET PO ONE (09:00)
[2025-07-10] MEDS ORDERED: METOPROLOL SUCCINATE 25 MG TABCR PO SCH (09:00)
[2025-07-10] MEDS ORDERED: POTASSIUM CHLORIDE 10 MEQ TABCR PO ONE (09:00)
[2025-07-10] MEDS ORDERED: GABAPENTIN 400 MG CAP PO SCH (09:00)
[2025-07-10] MEDS ORDERED: POTASSIUM CHLORIDE 40 MEQ,LIDOCAINE HCL 1% 40 MG in DEXTROSE 5% 250 ML IV ONE (09:00)
[2025-07-10] MEDS ORDERED: ARIPiprazole 5 MG TAB PO SCH (09:00)
--- NOTE | 2025-07-10 09:19 | NUR ---
BED LINENS CHANGED AND WIP DOWN COMPLETE. PATIENT TRANSFERRED BACK TO BED WITH SBA. PATIENT TOLERATED WELL. NEW BRIEF IN PLACE. PATIENT REFUSED A SHOWER CAP. PATIENT EDUCATED ON USING THE CALL LIGHT WHEN NEEDING TO GET UP. PATIENT REFUSED HAVING TO USE THE RESTROOM. PATIENT EXPRESSED UNDERSTANDING ON USING THE CALL LIGHT. PATIENT WITH HER MOTHER AND FATHER SITTING ON THE COUCH. PATIENT STATED NO FURTHER NEEDS AT THIS TIME. CALL LIGHT AND PERSONAL BELONGINGS ARE WITHIN REACH.
--- NOTE | 2025-07-10 09:44 | NUR ---
0900 MEDICATIONS ADMINISTERED PER THE EMAR. PATIENT REPORTS SEEING DR. GRAFF IN [place] FOR HER RIGHT HIP ON 07/16/25. PATIENT ALSO REPORTS SEEING IN [place], OR FOR BARIATRIC SURGERY. PATIENT DOES NOT REPORT HAVING A FOLLOW UP APPOINTMENT. BLINDS IN THE ROOM OPENED. PATIENT AND FAMILY EDUCATED ON THE IMPORTANCE OF HAVING THE BLINDS OPEN TO HELP WITH HOSPITAL DELIRIEM AND CONFUSION. PATIENT AND FAMILY EXPRESSED UNDERSTANDING. PATIENT EDUCATED ON THE IMPORTANCE OF A MULTIVITAMIN AFTER HAVING GASTRIC BYPASS SURGERY. PATIENT REPORTS TAKING ONE AT HOME. PATIENT STATED NO FURTHER NEEDS AT THIS TIME. CALL LIGHT AND PERSONAL BELONGINGS ARE WITHIN REACH.
--- NOTE | 2025-07-10 10:05 | NUR ---
THIS RN CALLED AT THIS TIME DUE TO CONFUSION REGARDING STARING ORAL MEDICATIONS FOR BLOOD SUAGR MANAGEMENT. MD STATED TO CONTINUE WITH THE HIGH SLIDING SCALE INSULINE EVERY 2 HOURS WITH HYPERGLYCEMIA MANAGEMENT. MD NOTIFIED OF EATING 10% OF BREAKFAST. MD STATED HE WAS GOING TO SPEAK WITH PHARMACY ABOUT WHAT MEDICATIONS TO START TOMORROW. MD WITH NO FURTHER ORDERS AT THIS TIME. CALL ENDED.
--- NOTE | 2025-07-10 10:23 | NUR ---
UR CLINICAL REVIEW: [facility] [place], MEETS INPT FOR DIABETES, DKA ANION GAP 32.4, GLUCOSE >500 AND REMAINS >300 PAST OBSERVATION PERIOD, PANCREATITIS, BICARB 3.7, IV FLUIDS, IV INSULIN, TREND LABS, NPO, KETONES IN URINE >80 [facility] 07/09/2025 @ 1248 ORDER MATCHES REG AUTH FOR INPT STAY 07/09/25-07/11/25. REF # [id number] PLAN TO DC TO HOME WHEN MEDICALLY READY 07/15/2025
[2025-07-10] MEDS ORDERED: NEURONTIN300 MG PO (11:08)
[2025-07-10] MEDS ORDERED: INSULIN GL100 UNIT/1 SUB-Q (11:09)
[2025-07-10] MEDS ORDERED: PANTOPRAZOLE SO40 MG PO (11:10)
[2025-07-10] MEDS ORDERED: PRENATAL VITAM1 EAC6 PO (11:11)
--- NOTE | 2025-07-10 11:12 | NUR ---
MED REC COMPLETE
--- NOTE | 2025-07-10 11:27 | NUR ---
PATIENT ASSISTED TO THE COMMODE AND VOID 650 ML CONCENTRATED URINE. PATIENT THEN TRANSFERRED BACK TO BED WITH SBA. PATIENT TOLERATED WELL. PATIENT IS SITTING ON THE EDGE OF BED. MOTHER AND FATHER REMAIN SITTING ON THE COUCH. BED ALARM IS ON. PATIENT STATED NO FURTHER NEEDS AT THIS TIME. CALL LIGHT AND PERSONAL BELONGINGS ARE WITHIN REACH.
--- NOTE | 2025-07-10 11:30 | NUR ---
ELMER WITH CASE MANAGEMENT IS IN THE ROOM AT THIS TIME.
--- NOTE | 2025-07-10 11:40 | NUR ---
1200 ASSESSMENT COMPLETE AND DOCUMENTED IN THE CHART. PATIENT IS ALERT AND ORIENTED TIMES FOUR. PATIENT WITH NO COMPLAINTS OF PAIN, NAUSEA, OR NUMBNESS/TINGLING. PATIENT RIGHT HIP DRESSING IS CLEAN, DRY, AND INTACT. PATIENT MOTHER REMAINS IN THE ROOM AND LYING ON THE COUCH. PATIENT STATED NO FURTHER NEEDS AT THIS TIME. CALL LIGHT AND PERSONAL BELONGINGS ARE WITHIN REACH.
--- NOTE | 2025-07-10 11:48 | NUR ---
THIS RN AND ROUNDED WITH THE PATIENT AT THIS TIME. MD EDUCATING PATIENT ON DIABETES AND PLACE OF CARE.
[2025-07-10] MEDS ORDERED: PHARMACY RENAL DOSE ADJUSTMENT 1 DOSE MISC PO SCH (12:00)
--- NOTE | 2025-07-10 12:05 | NUR ---
INTO SEE PATIENT. PERSONAL HEALTH INFORMATION REVIEWED. PATIENT LIVES IN A [place]. SHE USES A WALKER WITH AMBULATION. DOES NOT USE A CPAP OR OXYGEN AT HOME. SHE DOES DRIVE BUT RECENTLY UNABLE TO DUE TO HIP SURGERY. MOTHER AND FATHER AT BEDSIDE. PATIENT DENIES DIFFCULTY PAYING UTILITIES OR OBTAINING FOOD. SHE RECIEVES FOOD STAMPS. GAVE PATIENT INFORMATION FOR [facility], [facility], FOOD PANTRY, AND INFORMATION ON [facility] FOR MAKING IT FOLLOW UP DR. SANCHEZ.
--- NOTE | 2025-07-10 12:05 | NUR ---
VITAL SIGNS AND INTAKE AND OUTPUT VALUES TAKEN AND DOCUMENTED IN THE CHART. PATIENT IS SITTIN ELLEN THE EDGE OF BED AND EATING LUNCH. PATIENT EDUCATED ON THE DIFFERENCE BETWEEN A LOW-SUGAR AND LOW-CARBOHYDRATE DIET. PATIENT SHOWN THE LUNCH RECEIPT AND HOW MUCH EACH ITEM IS IN TERMS OF CARBS. PATIENT EXPRESSED UNDERSTANDING. PATIENT MOTHER REMAINS ON THE COUCH IN THE PATIENTS ROOM. PATIENT STATED NO FURTHER NEEDS AT THIS TIME. CALL LIGHT AND PERSONAL BELONGINGS ARE WITHIN REACH.
[2025-07-10] MEDS ORDERED: INSULIN GLARGINE-YFGN 100 UNIT/ML ML SUB-Q ONE (13:15)
--- NOTE | 2025-07-10 13:29 | NUR ---
FRESH CUP OF ICE WATER PROVIDED PER PATIENT REQUEST. PATIENT WITH FOUR VISITORS IN THE ROOM AT THIS TIME. PATIENT STATED NO FURTHER NEEDS. CALL LIGHT AND PERSONAL BELONGINGS ARE WITHIN REACH.
--- NOTE | 2025-07-10 14:10 | NUR ---
1400 AND 1500 MEDICATIONS ADMINISTERED PER THE EMAR. PATIENT IS LYING IN BED WITH HOB ELEVATED. TV IS ON. PATIENT WITH EYES OPEN AND RESPIRATIONS ARE EVEN AND UNLABORED. PATIENT MOTHER AND FATHER ARE SITTING ON THE COUCH AND IN THE ROOM. PATIENT STATED NO FURTHER NEEDS AT THIS TIME. CALL LIGHT AND PERSONAL BELONGINGS ARE WITHIN REACH.
--- NOTE | 2025-07-10 15:36 | NUR ---
FINAL ASSESSMENT COMPLETE AND DOCUMENTED IN THE CHART AT THIS TIME. PATIENT IS LYING IN BED WITH HOB ELEVATED. PATIENT WITH EYES OPEN AND RESPIRATIONS ARE EVEN AND UNLABORED. PATIENT IS ALERT AND ORIENTED TIMES FOUR. PATIENT REMAINS WITH NO COMPLAINTS OF PAIN, NAUSEA, OR NUMBNESS AND TINGLING. NO CHANGES FROM PRIOR ASSESSMENTS. PATIENT RIGHT HIP DRESSING REMAINS CLEAN, DRY, AND INTACT. COFFEE PROVIDED PER PATIENT REQUEST. PATIENT MOTHER GIVEN A CUP OF ICE PER REQUEST. PATIENT AND FAMILY STATED NO FURTHER NEEDS AT THIS TIME. CALL LIGHT AND PERSONAL BELONGINGS ARE WITHIN REACH.
--- NOTE | 2025-07-10 16:14 | NUR ---
VITAL SIGNS TAKEN AND DOCUMENTED IN THE CHART. 1600 MEDICATIONS ADMINISTERED PER THE EMAR. PATIENT IS LYING IN BED WITH HOB ELEVATED WITH EYES OPEN AND RESPIRATIONS ARE EVEN AND UNLABORED. TV IS ON. PATIENT HAS THREE VISITORS IN THE ROOM AT THIS TIME. PATIENT STATED NO FURTHER NEEDS, CALL LIGHT AND PERSONAL BELONGINGS ARE WITHIN REACH.
--- NOTE | 2025-07-10 17:09 | NUR ---
PATIENT IS LYING IN BED WITH HOB ELEVATED. PATIENT WITH EYES OPEN AND RESPIRATIONS ARE EVEN AND UNLABORED. TV IS ON. DINNER TRAY DELIVERED AND SET UP IN FRONT OF THE PATIENT. PATIENT WITH HER MOTHER AND HER FATHER SITTING ON THE COUCH. PATIENT STATED NO FURTHER NEEDS AT THIS TIME. CALL LIGHT AND PERSONAL BELONGINGS ARE WITHIN REACH.
--- NOTE | 2025-07-10 18:04 | NUR ---
1800 MEDICATIONS ADMINISTERED PER THE EMAR. PATIENT IS LYING IN BED WITH HOB ELEVATED. PATIENT WITH EYES OPEN AND RESPIRATIONS ARE EVEN AND UNLABORED. TV IS ON. PATIENT WITH THREE VISITORS IN THE ROOM AT THIS TIME. PATIENT REPORTS NOT NEEDING TO USE THE RESTROOM. PATIENT STATED NO FURTHER NEEDS AT THIS TIME. CALL LIGHT AND PERSONAL BELONGINGS ARE WITHIN REACH. GIVEN AN UPDATE AT THIS TIME. STATED HE WILL PUT IN ORDERS. CALL ENDED.
--- NOTE | 2025-07-10 19:27 | NUR ---
SHIFT CHANGE RECEIVED. PATIENT RESTING IN BED. FAMILY AT BEDSIDE. PATIENT DENIES ANY NEEDS. CALL LIGHT IN REACH.
[2025-07-10] MEDS ORDERED: INSULIN LISPRO 100 UNIT/ML ML SUB-Q SCH (21:00)
[2025-07-10] MEDS ORDERED: DULOXETINE HCL 60 MG CAP PO SCH (21:00)
--- NOTE | 2025-07-10 21:06 | NUR ---
PATIENT PROVIDED SCHEDULED MEDS. ACCU CHECK AND SSI ORDERS REVIEWED WITH PATIENT AND HER MOM. PATIENT UNDERSTANDS HOW SLIDING SCALE WORKS. OFFERED PATIENT TO DO HER OWN INJECTION WHICH SHE DECLINED. PATIENT VS STABLE. REMOVED FROM SHUTTLECOCK FEATHER TRIMMER DUE TO MED-SURG STATUS. PATIENT IS AAOX4. REMEMBERS RNs NAME FROM THIS MORNING. TOLERATING ROOM AIR. DENIES GI UPSET OR PAIN. DRESSING TO RIGHT HIP CDI. CMS INTACT. IV SITES WNL X3. PATIENT PROVIDED FRESH ICE WATER. DENIED ANY OTHER NEEDS. CALL [facility] IN REACH.
--- NOTE | 2025-07-10 23:30 | NUR ---
PATIENT RESTING IN BED; WATCHING TV. MOTHER AT BEDSIDE. PATIENT DENIED ANY NEEDS OR CONCERNS. CALL LIGHT IN REACH.
--- NOTE | 2025-07-11 00:39 | NUR ---
PATIENT UP TO THE BATHROOM. PATIENT UP WITHOUT ASSIST. AMBULATES WITH FWW APPROPRIATELY. PATIENT REPORTS SLEEPING HEAVY AND BEING INCONTINENT OF LARGE AMOUNT OF URINE. NEW BEDDING PROVIDED AND NEW ATTENDS. RN ASSISTED PATIENT TO CLEAN HERSELF WITH BODY WIPES. PATIENT VOIDED AGAIN ON THE TOILET AND THEN RETURNED TO BED. PATIENT APPEARS STEADY ON HER FEET. ENCOURAGED PATIENT TO CALL FOR ASSIST WHENEVER EXITING THE BED OR FOR ANY NEEDS. PATIENT AGREES. PATIENT'S MOTHER IN ROOM. CALL LIGHT IN REACH.
--- NOTE | 2025-07-11 02:30 | NUR ---
PATIENT APPEARS RESTFUL IN BED. RR 15. CALL LIGHT IN REACH.
--- NOTE | 2025-07-11 05:00 | NUR ---
LAB IN FOR MORNING DRAW
[2025-07-11 05:27] LABS: BASOPHILS 0.8 % (0.1-1.2); EOSINOPHILS 5.7 % (0.7-5.8); LYMPHOCYTES 39.6 % (19.3-51.7); MCH 29.2 PG (25.6-32.2); MCHC 35.2 g/dL (32.2-35.5); MCV 82.9 fL (79.4-94.8); MONOCYTES 9.1 % (4.7-12.5); NEUTROPHILS 43.7 % (34.0-71.1); RBC 3.63 M/uL (3.93-5.22)
[2025-07-11 05:46] LABS: ALT (SGPT) 13.0 U/L (14-59); AST (SGOT) 10.0 U/L (15-37); GLOMERULAR FILTRATION RATE,EST 111.0 mL/min (>60); PROTEIN, TOTAL 6.7 g/dL (6.4-8.2); UREA NITROGEN 8.0 mg/dL (7-18)
[2025-07-11 06:00] VITALS: BP 119/82
--- NOTE | 2025-07-11 06:00 | NUR ---
PATIENT RESTING IN BED. EYES CLOSED. WAKES EASILY TO VOICE. VS DONE; WNL. PATIENT DENIED PAIN OR GI UPSET. PATIENT DENIED NEED TO GET UP TO VOID AT THIS TIME. CALL LIGHT IN REACH.
--- NOTE | 2025-07-11 06:25 | NUR ---
UPDATED ON LABS; POTASSIUM REPLACEMENT ORDERED. SEE EMAR.
[2025-07-11 07:31] VITALS: BP 128/88
--- NOTE | 2025-07-11 07:32 | NUR ---
IN ROOM TO COMPLETE MORNING ASSESSMENT. PT RESTING IN BED WITH MOM IN ROOM. PT DENIES PAIN OR NAUSEA AT THIS TIME. DISCUSSED POSSIBLE DISCHARGE WITH PATIENT AT THIS TIME. MOM AT BEDSIDE.
--- NOTE | 2025-07-11 07:49 | NUR ---
PT UP TO BATHROOM VIA WHEELCHIAR WITH STANDBY ASSIST. PT TOLERATING ACTIVITY WELL. PT IN CHAIR WITH CALL LIGHT WITHIN REACH.
[2025-07-11] MEDS ORDERED: INSULIN GLARGINE-YFGN 100 UNIT/ML ML SUB-Q SCH ×2 (08:00)
[2025-07-11] MEDS ORDERED: POTASSIUM CHLORIDE 40 MEQ,LIDOCAINE HCL 1% 40 MG in DEXTROSE 5% 250 ML IV ONE (09:00)
[2025-07-11] MEDS ORDERED: POTASSIUM CHLORIDE 10 MEQ TABCR PO ONE (09:00)
[2025-07-11] MEDS ORDERED: buPROPion HCL XL 150 MG TAB.XL.24H PO SCH ×2 (09:00→21:00)
--- NOTE | 2025-07-11 09:09 | NUR ---
IN ROOM WITH PATIENT.
--- NOTE | 2025-07-11 09:32 | NUR ---
PT REMAINS UP IN CHAIR WITH FAMILY IN ROOM. LINENS CHANGED AT THIS TIME. CALL LIGHT WITHIN REACH.
--- NOTE | 2025-07-11 09:46 | NUR ---
PT UP TO BATHROOM WITH FRONT WHEELED WALKER AND STANDBY ASSIST. PT BACK TO CHAIR. DENIES FURTHER NEEDS. CALL LIGHT WITHIN REACH.
--- NOTE | 2025-07-11 10:50 | NUR ---
PT UP TO BATHROOM WITH FRONT WHEELED WALKER AND STANDBY ASSIST. PT TOLERATED ACTIVITY WELL. PT BACK IN CHAIR. FRESH WATER GIVEN. CALL LIGHT WITHIN REACH. FAMILY IN ROOM.
--- NOTE | 2025-07-11 11:02 | NUR ---
INTO SEE PATIENT. PATIENT IN CHAIR AT BEDSIDE. MOTHER AND FATHER PRESENT. SPOKE WITH THEM ABOUT [facility] GAVE THEM THE NUMBER AND LET THEM KNOW TO CALL 24 HOURS IN ADVANCE. PATIENT PARENTS TO TAKE HOME WHEN MEDICALLY CLEARED FOR DISCHARGE. NO QUESTIONS AT THIS TIME. NO CM NEEDS. THEY ARE WAITING FOR SPRAY GUN OPERATOR CONSULT.
--- NOTE | 2025-07-11 11:27 | NUR ---
VISITED DURING SPIRITUAL CARE ROUNDS. PT IN OVERALL GOOD SPIRITS, SUPPORTED BY PARENTS IN ROOM. ALL INDICATE NO IMMEDIATE NEEDS. MANAGER COMMUNITY PROVIDED SUPPORTIVE PRESENCE, HOSPITALITY, PRAYER. PT AND PARENTS EPXRESSED GRATITUDE, PURPOSE.
[2025-07-11 11:57] VITALS: BP 134/100
--- NOTE | 2025-07-11 12:21 | NUR ---
IN ROOM TO GIVE PATIENT LUNCH TRAY AND ADMINISTER INSULIN. PT SITTING AT EDGE OF BED WITH FAMILY IN ROOM. PT DENIES NEEDS. CALL LIGHT WITHIN REACH.
--- NOTE | 2025-07-11 14:10 | NUR ---
PT RESTING IN BED WATCHING TV. PT DENIES NEEDS AT THIS TIME. CALL LIGHT WITHIN REACH.
[2025-07-11 15:56] VITALS: BP 132/88
--- NOTE | 2025-07-11 15:57 | NUR ---
IN ROOM TO GET PATIENTS BLOOD SUGAR. PTS BLOOD SUGAR 275. PT HAS FAMILY IN ROOM AT THIS TIME.
--- NOTE | 2025-07-11 17:40 | NUR ---
IN ROOM TO TAKE PATIENT FOOD TRAY AND GIVE INSULIN AT THIS TIME. PT RESTING IN BED. PT ABLE TO MOVE TO EDGE OF BED WITHOUT ASSISTANCE. FRESH WATER GIVEN. PT DENIES FURTHER NEEDS AT THIS TIME. CALL LIGHT WITHIN REACH.
--- NOTE | 2025-07-11 19:00 | NUR ---
pt up to bathrooom with front wheeled walker and back to bed. pt tolerating activity well. call light within reach. mom in room.
--- NOTE | 2025-07-11 19:30 | NUR ---
REPORT RECEIVED FORM [facility]. PT AWAKE IN BED, RESP EVEN AND UNLABORED.
--- NOTE | 2025-07-11 19:50 | NUR ---
IN TO SEE PT AND DO ASSESSMENT. PT IS LYING ON BED USING HER PHONE, DENIES NEEDS AT THIS TIME, DENIES PAIN. FAMILY IN TO SPEND THE NIGHT. PLAN OF CARE FOR THE NIGHT DISCUSSED.
[2025-07-11] MEDS ORDERED: ROPINIROLE HCL 1 MG TAB PO SCH (21:00)
[2025-07-11 21:51] VITALS: BP 112/78
--- NOTE | 2025-07-12 00:05 | NUR ---
IN TO CHECK ON PT, SHE IS RESTING WITH EYES CLOSED, RESP EVEN AND UNLABORED.
--- NOTE | 2025-07-12 00:49 | NUR ---
PT CALLS FOR ASSISTANCE UP TO BR, 1PA WITH FWW UP TO BATHROOM AND THEN PT BACK TO BED, ASSESSMENT UNCHANGED, PT DENIES NEEDS.
--- NOTE | 2025-07-12 02:22 | NUR ---
PT CONT TO REST WITH EYES CLOSED, RESP EVEN AND UNLABORED.
[2025-07-12 03:39] VITALS: BP 121/81
--- NOTE | 2025-07-12 04:30 | NUR ---
IN TO CHECK ON PT, AWAKENS EASILY, DENIES NEEDS.
[2025-07-12 07:34] LABS: BASOPHILS 1.1 % (0.1-1.2); EOSINOPHILS 5.8 % (0.7-5.8); LYMPHOCYTES 38.6 % (19.3-51.7); MCH 29.2 PG (25.6-32.2); MCHC 35.1 g/dL (32.2-35.5); MCV 83.1 fL (79.4-94.8); MONOCYTES 8.4 % (4.7-12.5); NEUTROPHILS 45.0 % (34.0-71.1); RBC 3.56 M/uL (3.93-5.22)
[2025-07-12 07:43] VITALS: BP 136/108
[2025-07-12 07:45] LABS: GLOMERULAR FILTRATION RATE,EST 123.0 mL/min (>60); UREA NITROGEN 7.0 mg/dL (7-18)
[2025-07-12] MEDS ORDERED: INSULIN GLARGINE-YFGN 100 UNIT/ML ML SUB-Q SCH (08:00)
[2025-07-12 08:08] VITALS: BP 136/108
[2025-07-12] MEDS ORDERED: POTASSIUM BICARBONATE/CIT AC 20 MEQ TABEF PO ONE (08:15)
--- NOTE | 2025-07-12 08:22 | NUR ---
IN WITH PT COMPLETING MORNING ASSESSMENT AND MEDICATION ADMINISTRATION. PT DENIES ANY PAIN OR CURRENT NEEDS, BREAKFAST DELIEVERED. PT STATES SHE WOULD LIKE TO BE DISCHARGED TODAY AND FEELS CONFIDENT IN RETURNING HOME. CALL LIGHT WITHIN REACH, FAMILY AT BEDSIDE.
--- NOTE | 2025-07-12 11:31 | NUR ---
IN WITH PT TO DISCHARGE, WRITTEN DISCHARGE INSTRUCTIONS PROIVDED, PT VERBALIZES UNDERSTANDING, IV'S REMOVED, PRESSURE DRESSING APPLIED. PT CHANGED INTO CLOTHES AND TAKEN TO LOBBY VIA W/C
--- NOTE | 2025-07-12 11:43 | NUR ---
PT AWAITING RIDE FROM FRIEND
--- NOTE | 2025-07-12 12:03 | NUR ---
LUNCH DELIEVERED, PT WILL EAT LUNCH PRIOR TO BEING DISCHARGED
== END 2025-07-12 12:52 | disposition home or self-care (01) | DRG 638 ==
LOC: ED 11:04 → CCU 12:53
PROVIDERS: Emergency Medicine; ADMIT Student in an Organized Health Care Education/Training Program; ATTEND Student in an Organized Health Care Education/Training Program
DX: E11.10 Type 2 diabetes mellitus with ketoacidosis without coma (principal); N17.9 Acute kidney failure, unspecified; T38.3X6A Underdosing of insulin and oral hypoglycemic [antidiabetic] drugs, initial encounter; F17.200 Nicotine dependence, unspecified, uncomplicated; D75.838 Other thrombocytosis; Z96.641 Presence of right artificial hip joint; Z88.1 Allergy status to other antibiotic agents; Z91.81 History of falling; Z91.138 Patient's unintentional underdosing of medication regimen for other reason; Z88.0 Allergy status to penicillin; Z98.84 Bariatric surgery status; Z79.4 Long term (current) use of insulin
CPT/HCPCS: 36415; 36592; 73502; 74160; 80048; 80053; 80307; 81001; 82010; 82803; 83036; 83690; 83735; 84703; 85025; A9270; G0480; J1815; J2405; J3480; J3490; J7030; J7042; J7060; J7121; Q9967